=== PATIENT | female | born 1955 | race Caucasian/White ===

== ENCOUNTER 2016-06-25 09:17 | Inpatient (IN) | payer MEDICARE, MEDICAID ==
--- NOTE | 2016-06-18 13:53 | HP ---
PREOPERATIVE HISTORY AND PHYSICAL: DATE OF ADMISSION/SURGERY: 06/25/16 DATE OF OFFICE VISIT: 06/17/16 ATTENDING PHYSICIAN: Dr. Rand Begum. (DICTATED BY DHEERAJ MANUEL) PROCEDURE: Right shoulder arthroscopic excision, distal clavicle, versus open; arthroscopic decompression; debridement, rotator cuff repair, open. CHIEF COMPLAINT: Right shoulder pain. HISTORY OF PRESENT ILLNESS: Claudia is a 61-year-old female, who presents to the clinic for ongoing right shoulder pain due to biceps tendinitis, partial tear of rotator cuff and AC joint arthritis, the patient has failed conservative measures and has therefore agreed to undergo a right shoulder arthroscopic excision, distal clavicle, versus open; arthroscopic decompression; debridement , rotator cuff repair, open. PAST MEDICAL HISTORY: Sleep apnea and hyperlipidemia. PAST SURGICAL HISTORY: Appendectomy, tonsillectomy, carpal tunnel release, right shoulder surgery, right knee surgery x4, and x2. MEDICATIONS: 1. Humira 40 mg/0.8 mL inject 40 mg subcu once every other week. 2. Alprazolam 0.5 mg take 1 tab by mouth 30 minutes prior to MRI. 3. Hydrocodone/acetaminophen 7.5/325 take 1 to 2 every evening at bedtime. 4. Lortab 5/325 one to two tabs every 8 hours as needed for pain. 5. D3 Maximum Strength 5000 units take 1 capsule daily by mouth. 6. Cyanocobalamin 2500 mcg take 1 capsule daily by mouth sublingual. 7. Incentive spirometry daily to help improve atelectasis. 8. Seroquel 300 mg by mouth every day at bedtime. 9. Trazodone HCl 100 mg 2 by mouth every night at bedtime. 10. Symbicort 160/4.5 mcg per act 2 puffs twice a day. 11. Venlafaxine HCl 150 mg 1 tab by mouth every day. 12. Wellbutrin SR 150 mg 1 tab by mouth every day. ALLERGIES: SULFA ANTIBIOTICS, LATEX, and LEVAQUIN. FAMILY HISTORY: Diabetes and cancer. SOCIAL HISTORY: Lives with her and grandson. She smoked 1 pack per day. She denies alcohol use. REVIEW OF SYSTEMS: General: Negative for fever, chills, or night sweats. No known anesthesia problems. HEENT: Negative for headache, lightheadedness, or syncopal episodes. Integumentary: Negative for abrasions, lesions, or open wounds. Cardiothoracic: Negative for chest pain, palpitations, or edema. Negative for hypertension. Positive for hyperlipidemia. Pulmonary: Positive for shortness of breath with exertion, denies chronic cough, or COPD. GI: Negative for nausea, vomiting, diarrhea, or GERD. : Negative for nocturia, urinary frequency, urinary urgency, history of UTIs, or kidney problems. Musculoskeletal: Positive for current complaint. Neuro: Negative for paresthesias, numbness, history of stroke, seizure, or epilepsy. Endocrine: Negative for diabetes or thyroid issues. Heme: Negative for easy bruising, anemia, excessive bleeding, or history of DVT. Infectious Disease: Negative for history of MRSA, hepatitis C, or HIV. PHYSICAL EXAMINATION GENERAL: Overweight 61-year-old female, in no acute distress. Alert and oriented x3. Appropriate mood and affect. VITAL SIGNS: Height 65, weight 300 pounds, blood pressure 122/80, respiratory rate 18, BMI 49.9. HEENT: Normocephalic, atraumatic. PERRLA. Throat clear. NECK: Supple. PULMONARY: Lungs are clear to auscultation bilaterally. No wheezing, rhonchi, or rales. CARDIO: Regular rate and rhythm. S1, S2. No murmurs, rubs, or gallops. No edema. ABDOMEN: Positive bowel sounds, soft, and nontender. NEURO: Alert and oriented x3. Cranial nerves grossly intact. Sensation is intact to light touch. MUSCULOSKELETAL: Right upper extremity, skin is intact. No warmth or erythema. Tenderness to palpation over the anterior shoulder as well as the subacromial space. Forward flexion to 140, abduction to 140 limited by pain, external rotation to 50, and internal rotation to posterior iliac spine. Extreme pain with rotator cuff testing with 4/5 strength. Unable to perform subscapularis testing, tenderness to palpation over the AC joint, positive Neer' s, Ferrer, Cayey's. +2 radial pulse. Sensation intact to light touch distally. Left shoulder, skin is intact. Nontender to palpation. Full range of motion. +2 radial pulse. Sensation intact to light touch distally. DIAGNOSTIC STUDIES: MRI of the right shoulder revealed high-grade partial thickness tear of the supraspinatus tendon, biceps tendinitis, undersurface tear of the subscapularis tendon, and a SLAP lesion as well as AC joint arthritis. IMPRESSION: Right shoulder partial tear of the supraspinatus and subscapularis tendon, acromioclavicular joint arthritis, and biceps tendinitis. PLAN: The patient is scheduled to undergo a right shoulder arthroscopic excision, distal clavicle, versus open; arthroscopic decompression; debridement , rotator cuff repair, open with Dr. Begum on 06/25/16. The patient states that she has recently seen her primary care physician and has been cleared. She will return to the office 10 to 14 days postop for followup and suture removal. Percocet will be used for postoperative pain management. DHEERAJ MANUEL [id number]/[facility] #: [id number] MTDD
[~2016-06-25 09:17] MED LIST: Atracurium* 10 MG/ML 10 ML VIAL ONE; Buffered Lidocaine 1% SYR 3ML* 3 ML/SYR SYRINGE INTRADERM ONE; Bupivacaine 0.25% SDV* 30 ML ONE; Dexamethasone TAB* 4 MG ONE; Dexamethasone TAB* 4 MG PO ONE; Famotidine IV* 10 MG/ML 2 ML (20 mg) IV ONE; Famotidine IV* 10 MG/ML 2 ML (20 mg) ONE; KETAMINE HCL* 50 MG/ML 10 ML VIAL ONE; Midazolam* 1 MG/ML 5 ML VIAL (5 MG) ONE; Morphine INJ* 2 MG/ML 1 ML SYRINGE IV PRN; PROCHLORPERAZINE INJ 5 MG/ML 2 ML VIAL IV PRN; Scopolamine 1.5 mg* PATCH TRANSDERM PRN; fentaNYL* 50 MCG/ML 2 ML VIAL (100 MCG VIAL) IV PRN; fentaNYL* 50 MCG/ML 5 ML VIAL (250 MCG VIAL) ONE; oxyCODONE/Acetamin 5/325 MG* TAB PO PRN
[2016-06-25] MEDS ORDERED: ceFAZolin 1 GM in Dextrose (*) 1 GM/50 ML BAG IVPB ONE (09:18)
[2016-06-25] MEDS ORDERED: ceFAZolin 2 GM PREMIX(*) 2 GM/50 ML BAG IVPB ONE (09:18)
[2016-06-25] MEDS ORDERED: Bupivacaine 0.25% SDV* 30 ML ONE (10:42)
[2016-06-25] MEDS ORDERED: Propofol* 10 MG/ML 20 ML BTL IV PUSH ONE ×2 (11:48→13:11)
[2016-06-25] MEDS ORDERED: Ondansetron INJ* 2 MG/ML VIAL ONE (11:48)
[2016-06-25] MEDS ORDERED: PROCHLORPERAZINE INJ 5 MG/ML 2 ML VIAL ONE (11:48)
[2016-06-25] MEDS ORDERED: Lidocaine 2% PF * 5 ML VIAL ONE (11:48)
[2016-06-25] MEDS ORDERED: Phenylephrine INJ* 10 MG/ML 1 ML VIAL (10 MG) ONE (11:49)
[2016-06-25] MEDS ORDERED: EPHEDrine (Pressors)* 50 MG/ML VIAL ONE (11:49)
[2016-06-25] MEDS ORDERED: Morphine INJ* 10 MG/ML 1 ML SYRINGE ONE (12:35)
[2016-06-25] MEDS ORDERED: Neostigmine Methylsulfate* 2 MG/2 ML SYRINGE ONE (13:05)
[2016-06-25] MEDS ORDERED: Glycopyrrolate IV* 0.2 MG/ML 1 ML VIAL ONE (13:05)
[2016-06-25] MEDS ORDERED: Ketorolac INJ* 30 MG/ML 1 ML VIAL ONE (13:06)
[2016-06-25] MEDS ORDERED: Albuterol 2.5 MG/3 ML NEB.SOL* (0.083%) ONE (14:34)
[2016-06-25] MEDS ORDERED: Ondansetron TAB* 4 MG PO PRN (16:28)
[2016-06-25] MEDS ORDERED: diPHENhydraMINE PO* 25 MG PO PRN (16:28)
[2016-06-25] MEDS ORDERED: Magnesium Hydroxide LIQ* 30 ML UDC PO PRN (16:28)
[2016-06-25] MEDS ORDERED: Acetaminophen TAB* 325 MG PO PRN (16:28)
[2016-06-25] MEDS ORDERED: oxyCODONE/Acetamin 5/325 MG* TAB PO PRN (16:28)
[2016-06-25] MEDS ORDERED: traZODone TAB* 50 MG TAB PO PRN (16:40)
[2016-06-25] MEDS ORDERED: Phenazopyridine TAB* 100 MG PO PRN (16:40)
[2016-06-25] MEDS ORDERED: Bumetanide TAB* 1 MG PO PRN (16:40)
[2016-06-25] MEDS ORDERED: oxyCODONE/Acetamin 5/325 MG* TAB ONE (18:33)
--- NOTE | 2016-06-25 19:21 | RAD ---
INDICATION: Hypoxemia postop. COMPARISON: Comparison is made with a prior chest x-ray study from September 24, 2015. TECHNIQUE: A portable view of the chest was obtained. FINDINGS: The heart is enlarged and unchanged from the prior exam. The lungs are underinflated. There is mild prominence of the interstitial markings which are unchanged. There is a small infiltrate at the right lung base. No pleural effusion is seen. IMPRESSION: 1. EXPIRATORY EXAM, SMALL RIGHT BASILAR INFILTRATE. 2. CARDIOMEGALY, UNCHANGED.
--- NOTE | 2016-06-25 20:17 | CONS ---
CONSULTATION REPORT: DATE OF CONSULT: 06/25/16 REASON FOR CONSULT: Postoperative hypoxemia in a patient with obstructive sleep apnea. REQUESTING PHYSICIAN: Consultation was requested by Dr. Begum from Orthopedic Surgery. CHIEF COMPLAINT: Shortness of breath. HISTORY OF PRESENT ILLNESS: Claudia Sandoval is a 61-year-old obese female with a history of obstructive sleep apnea, who is seen in the PACU, status post general anesthesia and surgery of right rotator cuff. The patient had nerve block for her right arm for postoperative pain management. She also had general anesthesia for her procedure. Postoperatively, she was noted to have oxygen saturations in the 80s and she was placed right now on OxyMask on 30% oxygen with saturations at 94% right now. The patient at baseline uses CPAP at night and she does not use oxygen at home. She does not have history of oxygen dependence in the past either. The patient is being to the admitted to the orthopedic service for overnight observation with a diagnosis of postoperative hypoxemia. Medicine was consulted in regards to postoperative hypoxemia. PAST MEDICAL HISTORY: 1. The patient is a current smoker. 2. Obesity. 3. COPD, not oxygen dependent. 4. History of dysthymic disorder. 5. Generalized anxiety disorder. 6. Rheumatoid arthritis. 7. History of irritable bowel syndrome with predominant diarrhea. 8. Gastroesophageal reflux disease. PAST SURGICAL HISTORY: Includes: 1. Appendectomy. 2. Cholecystectomy. 3. Tubal ligation. 4. Knee arthroscopies. 5. Carpal tunnel release. 6. . 7. Tonsillectomy. CURRENT MEDICATIONS: Include: 1. Trazodone 150 mg at bedtime p.r.n. 2. Seroquel XR 300 mg at bedtime. 3. Pyridium 200 mg t.i.d. p.r.n. 4. Enbrel 60 mg subcutaneously every 7 days. 5. Bumex 1 mg daily for leg swelling. 6. Symbicort 160/4.5 two puffs b.i.d. The patient also uses CPAP at night. FAMILY HISTORY: Positive for father who of bone cancer. SOCIAL HISTORY: The patient currently smokes up to 10 cigarettes a day. She denies any drug use. She drinks alcohol rarely. Her surrogate is her , Brandon Kerr. REVIEW OF SYSTEMS: Please see history of present illness. The patient stated that she occasionally has leg edema and appears to be more due to venous stasis ; it gets better when she has her feet elevated. She stated that her exercise tolerance is pretty poor. She is unable to walk a flight of stairs without significant dyspnea. She has not had any chest pain. Rheumatoid arthritis mostly affects the large joints in the bilateral shoulders , bilateral knees as well as neck. Currently, she denies any recent fevers. No recent cough or upper respiratory infection symptoms. All the remaining 14 systems were reviewed with the patient and were otherwise negative. PHYSICAL EXAM: Blood pressure of 151/82, heart rate of 77 and regular, respiratory rate 20, oxygen saturation 92% on 30% of oxygen via OxyMask, temperature 98.1. General: The patient is a very pleasant 61-year-old female whose BMI is 49. The patient is in no acute distress. Alert, awake, and oriented x3. HEENT: Head: Atraumatic, normocephalic. Eyes: Pupils equal, reactive to light and accommodation. Oropharynx clear. Mucosa moist. Neck: Supple. No JVD. No bruit bilaterally. Cardiovascular: Regular rate and rhythm. No murmur. Respiratory: Clear to auscultation bilaterally. Abdomen: Soft, nontender. Bowel sounds present in all 4 quadrants. Lower Extremities: There is no pedal edema. Pulses are +2 bilaterally. No clubbing or cyanosis. The right upper extremity is in postoperative sling. On evaluation of the skin , grossly no ecchymotic areas or rashes noted. The postoperative dressings on the right shoulder were not removed. DIAGNOSTIC STUDIES/LAB DATA: Currently, there are no available laboratory data and studies. Portable chest x-ray is ordered during this consultation. ASSESSMENT AND PLAN: A 61-year-old morbidly obese female with a history of obstructive sleep apnea, she was postoperative after a right rotator cuff repair and after general anesthesia. In regards to the patient's hypoxemia, it is most likely multifactorial and related to her intubation atelectasis post intubation as well as obstructive sleep apnea. The patient also has underlying chronic obstructive pulmonary disease and has no respiratory reserve. At this point, it does not appear to be chronic obstructive pulmonary disease exacerbation. At this point, I hold her postoperative intravenous fluids as were ordered by her primary service. The patient appears euvolemic. I do not think she needs anymore fluids. The patient is going to be placed on oxygen supplementation and CPAP at night. Incentive spirometry was also ordered. In regards to the patient's chronic obstructive pulmonary disease, the patient is going to be continued on Symbicort as previously taken. In regards to the patient's rheumatoid arthritis, that is being treated as an outpatient by Dr. Christy. For DVT prophylaxis, the patient was placed on Lovenox per primary service. Code status: The patient's code status is full. At this point, I believe the overnight observation, incentive spirometry, and CPAP are fully going to resolve and the patient being able to be on room air by tomorrow morning. She may nevertheless require oxygen at discharge and that can be arranged by porter sample case. Thank you very much for allowing me to see your patient in consultation. At this point, our service will sign off. Please let us know if any further needs or services are needed. I will be happy to assist you with them. TIME SPENT: Approximately 60 minutes was spent on the patient's consultation. CC: Dr. Christy; Dr. Moreno; Dr. Begum* [id number]/[facility] #: [id number] [facility]
[2016-06-25] MEDS ORDERED: QUEtiapine XR TAB* 300 MG PO SCH (21:00)
[2016-06-25] MEDS: Mometasone/Formoter 200/5 MDI INH SCH (21:04)
[2016-06-25] MEDS: ceFAZolin 1 GM in Dextrose (*) 1 GM/50 ML BAG IVPB SCH (21:09)
[2016-06-25] MEDS: oxyCODONE/Acetamin 5/325 MG* TAB PO PRN (22:35)
[2016-06-26] MEDS: ceFAZolin 1 GM in Dextrose (*) 1 GM/50 ML BAG IVPB SCH ×2 (01:32→07:15)
[2016-06-26] MEDS: oxyCODONE/Acetamin 5/325 MG* TAB PO PRN ×3 (02:34→12:58)
[2016-06-26] MEDS: Mometasone/Formoter 200/5 MDI INH SCH (07:15)
--- NOTE | 2016-06-26 08:23 | PN ---
Progress Note - Progress Note SOAP: Subjective: [61 y/o female POD 1 s/p shoulder arthroscopy complicated post-op by hypoxemia. Patient feeling well, eager for DC. No SOB, chest pain overnight. ] Objective: [General- well appearing, NAD MSK- dressing intact, able to move fingers well. ] Vital Signs Temp 97.4 F 06/26/16 07:25 Pulse 58 06/26/16 07:25 Resp 16 06/26/16 08:00 BP 143/54 06/26/16 07:25 Pulse Ox 95 06/26/16 07:25 Intake & Output 06/25/16 06/26/16 06/26/16 18:59 06:59 18:59 Intake Total 1420 485 164 Output Total 400 Balance 1420 85 164 Weight 299 lb 12.8 oz Intake: IV Fluids 1300 35 106 ABX - CEFAZOLIN 35 LR 1300 106 IVPB 50 58 ABX - CEFAZOLIN 50 58 Oral 120 400 Output: Urine 400 Other: Estimated Blood Loss <100 Comment Assessment: [61 y/o female POD 1 s/p shoulder arthroscopy complicated post-op by hypoxemia] Plan: [- Await hospitalist recommendations - Follow up with Dr Begum within 10 days ] Active Medications Generic Name Dose Route Start Last Admin Trade Name Freq PRN Reason Stop Dose Admin Acetaminophen 650 mg 06/25/16 16:28 Tylenol Tab* PO Q4H PRN PAIN OR TEMPERATURE Bumetanide 1 mg 06/25/16 16:40 Bumex Tab* PO DAILY PRN fluid retention Diphenhydramine HCl 25 mg 06/25/16 16:28 Benadryl Po* PO Q6H PRN itching or sleep Enoxaparin Sodium 30 mg 06/26/16 09:00 06/26/16 07:18 Lovenox(*) SUBCUT 30 mg Q24H JUAN Administration Etanercept 60 mg 06/29/16 17:00 Enbrel (Nf) SUBCUT Q7D JUAN Lactated Ringer's 1,000 mls @ 125 mls/hr 06/25/16 06:00 Lactated Ringers 1000 Ml Bag* IV PER RATE JUAN Lactulose 30 ml 06/25/16 16:28 Lactulose* PO Q6H PRN constipation Magnesium Hydroxide 30 ml 06/25/16 16:28 Milk Of Magnesia Liq* PO Q6H PRN constipation Mometasone Furoate/Formoterol Fumar 2 puff 06/25/16 21:00 06/26/16 07:15 Dulera 200/5 Mdi* INH 2 puff BID JUAN Administration Protocol Ondansetron HCl 4 mg 06/25/16 16:28 Zofran Tab* PO Q6H PRN NAUSEA Oxycodone/Acetaminophen 1 tab 06/25/16 16:28 Percocet 5/325 Tab* PO Q4H PRN PAIN Oxycodone/Acetaminophen 2 tab 06/25/16 16:28 06/26/16 07:24 Percocet 5/325 Tab* PO 2 tab Q4H PRN Administration PAIN Pharmacy Profile Note 1 note 06/28/16 05:43 Scopolomine Patch Remove* PATCH OFF 06/28/16 05:44 Q72H ONE Phenazopyridine HCl 200 mg 06/25/16 16:40 Pyridium Tab* PO TID PRN bladder Quetiapine Fumarate 300 mg 06/25/16 21:00 06/25/16 22:35 Seroquel Xr Tab* PO 300 mg BEDTIME JUAN Administration Trazodone HCl 150 mg 06/25/16 16:40 Desyrel Tab* PO BEDTIME PRN INSOMNIA
[2016-06-26] MEDS ORDERED: Enoxaparin(*) 30 MG/0.3 ML SYR SUBCUT SCH (09:00)
--- NOTE | 2016-06-26 12:23 | PN ---
Progress Note - Progress Note Note: POD#1 from [facility]. Admitted for hypoxia. Doing well. Pain controlled. eager to go home. 1 sat below 90 yesterday evening on CPAP at home. Temp Pulse Resp BP Pulse Ox 97.4 F 60 15 116/52 91 06/26/16 07:25 06/26/16 11:48 06/26/16 11:48 06/26/16 11:48 06/26/16 11:48 NAD. Dressing and icepack in place. SILT grossly distally. brisk cap refill/ A/P POD#1 doing well. sats doing well. will monitor for next few hours and d/c on RA as long as no sats below 88. else she will need O2. appreciate medicine consult. f/u 10-14 days. dispo today
[2016-06-26 15:59] VITALS: BP 145/60
--- NOTE | 2016-06-26 22:49 | DS ---
DISCHARGE SUMMARY: DATE OF ADMISSION: 06/25/16 DATE OF DISCHARGE: 06/26/16 ATTENDING SURGEON: Dr. Rand Begum (DICTATED BY DHEERAJ WHITE) CHIEF COMPLAINT: 1. Right shoulder pain. 2. Sleep apnea. 3. Hyperlipidemia. DISCHARGE DIAGNOSES: 1. Status post right arthroscopic incision, rotator cuff repair. 2. Sleep apnea. 3. Hyperlipidemia. 4. Postoperative hypoxemia. CONSULTATIONS: 1. Physical Therapy. 2. Hospitalist. BRIEF HISTORY: Mrs. Sandoval is a very pleasant 61-year-old female with a longstanding history of right shoulder pain, who elected to undergo a right shoulder rotator cuff repair by Dr. Begum on 06/25/16. HOSPITAL COURSE: Mrs. Sandoval was admitted to [facility] on 06/25/16 after undergoing an uncomplicated right rotator cuff repair surgery. Postoperatively, the patient was noted to have oxygen saturations in the 80s and was admitted for overnight observations with the diagnosis of postoperative hypoxemia. She was monitored with incentive spirometry and her CPAP overnight and was noted to have oxygen saturations in the upper 80s without room air and in the low to mid 90s with 2 to 4 L of nasal cannula overnight. The patient continued to improve and by midday on 06/26/16 was remaining above 90 on room air. She was deemed orthopedically and medically stable for discharge to go home. PHYSICAL EXAMINATION: General: Well appearing, in no acute distress. Alert and oriented x3. Vital Signs: Temperature of 97.4, pulse of 58, respirations 17, oxygen saturation 95% on room air, and blood pressure 143/54. Surgical dressing intact with no signs of drainage or erythema. The patient is able to move all digits without difficulty. Brisk cap refill. DISCHARGE MEDICATIONS: 1. Tylenol 650 mg p.o. q.4 hours p.r.n. 2. Bumex 1 mg p.o. daily. 3. Enbrel 60 mg subcutaneously every 7 days. 4. Symbicort 2 puffs inhaled b.i.d. 5. Pyridium 200 mg p.o. t.i.d. 6. Seroquel 300 mg p.o. at bedtime. 7. Benadryl 25 mg p.o. q.6 hours p.r.n. 8. Percocet 1 to 2 tablets q.4 hours p.o. p.r.n. 9. Trazodone 150 mg p.o. at bedtime. CONDITION ON DISCHARGE: Stable. DISCHARGE INSTRUCTIONS: Mrs. Sandoval is a very pleasant 61-year-old female postoperative day 1 status post right rotator cuff repair, which was complicated by postoperative hypoxemia. This appeared to have resolved and the patient was orthopedically and medically stable for discharge to go home. She will continue her exercises as shown by Dr. Begum and will be able to remove her surgical dressing on postoperative day 3. She had no further questions or concerns. She will follow up with Dr. Begum in approximately 10 to 14 days for incision check. She was instructed to go to the ER should she develop shortness of breath or chest pain and should call the office should she develop fever, increasing redness, or drainage around the incision site. DHEERAJ WHITE [id number]/[facility] #: [id number] [facility] MANUEL
--- NOTE | 2016-06-27 05:05 | OP ---
DATE OF OPERATION: 06/25/16 - ROOM #347 DATE OF : 59 SURGEON: Rand Begum MD PCA ASSISTED LIVING: DHEERAJ Zimmerman. An web production assistant was needed for the entirety of the case to help with positioning, retraction, and was utilized throughout all portions of the case. ANESTHESIOLOGIST: Dr. Campbell. ANESTHESIA: General with interscalene block. PRE-OP DIAGNOSES: Right shoulder rotator cuff tear, bicipital tendonitis, impingement, AC joint arthritis. POST-OP DIAGNOSES: Right shoulder rotator cuff tear, bicipital tendonitis impingement. OPERATIVE PROCEDURE: Right shoulder arthroscopy with: 1. Extensive glenohumeral debridement including chondroplasty and biceps tenotomy. 2. Rotator cuff repair. 3. Subacromial decompression with acromioplasty. 4. Distal clavicle excision. IMPLANTS: One 4.75 HEALICOIL. COMPLICATIONS: The patient had mild hypoxia due to her body habitus as well as NISSA, which required admission postoperatively overnight, but no surgical complications. ESTIMATED BLOOD LOSS: Minimal. INDICATIONS: Claudia Sandoval is a 61-year-old female, who has had persistent shoulder pain for several years. She had an MRI that demonstrates the partial thickness tear anteriorly of her rotator cuff. She has failed conservative management including injections as well as anti-inflammatories and physical therapy. After an extensive discussion of the risks and benefits of surgical versus nonoperative treatment, she has elected to proceed with surgery. The patient is morbidly obese and has multiple medical problems and underwent preoperative medical risk assessment and optimization prior to surgery. Risks included, but are not limited to, bleeding, infection, damage to nerves, vessels , surrounding structures, the wound not healing, persistent pain, need for further surgery, risk of anesthesia and risk of DVT. She was at a moderate risk due to her morbid obesity and sleep apnea. DESCRIPTION OF PROCEDURE: The patient was greeted in the preoperative area by the attending surgeon. The correct extremity was marked and consent was confirmed. The patient was then underwent interscalene block in the preanesthesia area, which she tolerated without difficulty after which, the patient was brought back to the operating suite where she was placed in the supine position on the operating room table. She then underwent general anesthesia and endotracheal intubation after which the patient was carefully placed in the left lateral decubitus position with an axillary roll. All bony prominences were padded. She was supported with a peg board. The right arm was suspended from the traction frame with 15 pounds of traction. The right shoulder was prepped and draped in the usual sterile fashion beginning with chlorhexidine soap, scrub and alcohol wipe and a final prep with ChloraPrep. After appropriate surgical pause indicating side, site, and procedure, administration of antibiotics, a standard posterior portal was made sharply with a #11 blade. The scope was introduced to the joint. The joint was examined. There was evidence of full-thickness tear anteriorly. The humerus had grade 0 to 1 changes. Glenoid had a small area of grade 2 changes, otherwise grade 1 changes. Anterior portal was made in an outside-in fashion. Shaver was used to debride the anterior posterior labrum. The biceps was taken through range of motion and was also found to be torn. This was then tenotomized and the stump was debrided back. The undersurface of the subscapularis was found to be intact with mild fraying, which was debrided back. The anterior posterior superior labrum, as well as the small chondroplasty was done in the glenoid. The inferior recess was intact. There was abundant synovitis apparent and a small amount of lysis of adhesions was done anteriorly. After this was complete, the scope was then repositioned in the subacromial space. The scope was repositioned in the subacromial space and lateral portal was made in an outside-in fashion. Shaver was used to remove the abundant bursa that was present. Electrocautery device was used to maintain hemostasis at all time. The undersurface of the acromion was identified and the acromion was skeletonized and found a moderate anterior spur. There was also calcification evident of the CA ligament. This removal of soft tissue was carried all the way to the AC joint. At this point, a 4.0 oval haile was brought in to do an acromioplasty and remove the excess bone of the CA ligament. Once this was completed, all debris was removed from the shoulder and the attention was directed to the distal clavicle. The haile was brought into the anterior portal and a distal clavicle excision was done. This was somewhat difficult to visualize due to her body habitus. After resection was done as best as possible, all loose debris was removed. The clavicle was manipulated and found to have no areas of impingement. At this point, the rotator cuff was examined again. Through the lateral portal, the blunt probe was then used to try to determine any areas of weakness. The soft tissue quality was not very good and there was a full thickness deep anteriorly based, a small portion of the anterior rotator cuff was then completed. She may have had partial thickness tear posterior to that due to the fact that I was concerned about her healing and limited how much of the rotator cuff was taken down and therefore a small portion of the anterior rotator cuff was prepared with the shaver and the electrocautery device. The rasp was used to prepare the greater tuberosity as well as electrocautery device. Once this was done, a 4.75 HEALICOIL anchor was placed through a separate stab incision. The sutures were passed through the tendon full-thickness bites and these were tied down in a horizontal mattress configuration. All loose fiber and debris were removed. The shoulder was taken through range of motion and was found to be intact. The remainder of the cuff was found to be not of great quality, but was still intact. Therefore, it remained. The wound was copiously irrigated after the final images were obtained and the portals were closed with 3-0 nylon. Sterile dressings were applied as well as a cryo/Cuff and an UltraSling. The patient was then awoken from anesthesia and transferred to the PACU in stable condition. POSTOPERATIVE PLAN: She will be in the sling for 6 weeks. She will be discharged on pain medication. She will be allowed to work on elbow, wrist, and hand range of motion. DVT prophylaxis was considered but deferred due to no previous or personal family history. Postoperatively, the patient did have some issues with hypoxia and was monitored for sometime, but was felt unsafe to go home. At this point, the patient was admitted overnight to my service and the Hospitalist was consulted for any recommendations. She was monitored and we will potentially discharge her on postop day 1. We will have her follow up with her primary care within 1 week. DVT prophylaxis will be heparin while she is in-house and I will see her in 10 to 14 days postoperatively. [id number]/CPS #: [id number] MTDD
[2016-06-28] MEDS ORDERED: Scopolomine PATCH Remove* 1 NOTE MISC PATCH OFF ONE (05:43)
[2016-06-29] MEDS ORDERED: Etanercept SYR (NF) 50 MG/ML 0.98 ML SUBCUT SCH (17:00)
== END 2016-06-26 17:10 | disposition home or self-care (01) | DRG 501 ==
LOC: OR 09:17 → SSU 16:28
PROVIDERS: ADMIT Orthopaedic Surgery; ATTEND Orthopaedic Surgery
PROC: 0LQ14ZZ Repair Right Shoulder Tendon, Percutaneous Endoscopic Approach (ICD-10-PCS; 2016-06-25)
PROC: 0RBJ4ZZ Excision of Right Shoulder Joint, Percutaneous Endoscopic Approach (ICD-10-PCS; 2016-06-25)
PROC: 0RNJ4ZZ Release Right Shoulder Joint, Percutaneous Endoscopic Approach (ICD-10-PCS; 2016-06-25)
PROC: 0PB94ZZ Excision of Right Clavicle, Percutaneous Endoscopic Approach (ICD-10-PCS; 2016-06-25)
PROC: 5A09357 Assistance with Respiratory Ventilation, Less than 24 Consecutive Hours, Continuous Positive Airway Pressure (ICD-10-PCS; 2016-06-25)
PROC: 0KN Muscles, Release (ICD-10-PCS; principal; 2016-06-25 10:45)
DX: M75.111 Incomplete rotator cuff tear or rupture of right shoulder, not specified as traumatic (principal); Z68.42 Body mass index [BMI] 45.0-49.9, adult; M75.21 Bicipital tendinitis, right shoulder; M25.811 Other specified joint disorders, right shoulder; M65.811 Other synovitis and tenosynovitis, right shoulder; E78.5 Hyperlipidemia, unspecified; R09.02 Hypoxemia; F17.210 Nicotine dependence, cigarettes, uncomplicated; M19.011 Primary osteoarthritis, right shoulder; G47.33 Obstructive sleep apnea (adult) (pediatric); J44.9 Chronic obstructive pulmonary disease, unspecified; F34.1 Dysthymic disorder; F41.1 Generalized anxiety disorder; M06.9 Rheumatoid arthritis, unspecified; K58.9 Irritable bowel syndrome, unspecified; K21.9 Gastro-esophageal reflux disease without esophagitis; E66.01 Morbid (severe) obesity due to excess calories; Z88.1 Allergy status to other antibiotic agents; Z88.2 Allergy status to sulfonamides; Z91.040 Latex allergy status; Z83.3 Family history of diabetes mellitus; Z98.51 Tubal ligation status; Z80.8 Family history of malignant neoplasm of other organs or systems
CPT/HCPCS: 71010; 94640; 94760; 99406; A9270-GY; C1713; J0690; J0780; J1650; J1885; J2250; J2270; J2405; J2704; J3010

== ENCOUNTER 2017-12-28 15:50 | Emergency (ER) | payer OTHER, MEDICAID ==
--- OUTSIDE RECORDS SUMMARY | 2017-12-28 15:55 | XMS REPORT ---
:1955 External Reference #:[id number] Author Organization [facility] Address [address] [place] [address] Phone [phone] Care Team Providers Name Role Phone Isaiah Moreno MD Primary Care Physician Unavailable Payers Type Date Identification Numbers Payment Provider Subscriber Medicare Primary Policy Number: [id number] Medicare Claudia Sandoval PayID: [id number] [address] [place] [address] [facility] Part B Effective: 2016 Policy Number: [id number] Medicaid Claudia Sandoval Group Name: 1 1 [address] PayID: [id number] [place] [address] Problems Date Description Provider Status Onset: 10/24/2015 Sleep apnea Ana Paula Forrest DNP, RN, Active [employer] Onset: 10/24/2015 Dyssomnia Ana Paula Forrest DNP RN, Active [employer] Onset: 10/24/2015 Periodic leg movements of sleep Ana Paula Forrest DNP, RN, Active [employer] Onset: 10/24/2015 Tobacco user Ana Paula Forrest DNP, RN, Active [employer] Onset: 01/30/2016 Localized, primary osteoarthritis Didi Chao M.D. Active of the shoulder region Onset: 01/30/2016 Sprain of shoulder rotator cuff Didi Chao M.D. Active Onset: 08/07/2016 Bicipital tenosynovitis Rand Begum MD Active Onset: 12/11/2016 Full thickness rotator cuff tear Rand Begum MD Active Onset: 09/30/2016 Incomplete rotatr-cuff tear/ruptr Rand Begum MD Active of r shoulder, not trauma Family History Date Family Member(s) Problem(s) Comments General Diabetes General Cancer General Arthritis General Paternal side Father due to Renal Failure () Father due to Cancer () Mother Mother left when pt was young child ; no family hx Siblings 4 2 full sister, never sees 2 1/2 brothers Social History Type Date Description Comments Marital Status Lives With 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 ETOH Use Denies alcohol use Smoking quit as of 06/25/16 Recreational Drug Use Marijuana - helps pt sleep Smoking Patient is a former smoker Daily Caffeine Consumes on average 1 cup of regular coffee per day Exercise Type/Frequency Does not exercise Allergies, Adverse Reactions, Alerts Date Description Reaction Status Severity Comments 06/30/2013 Sulfa Antibiotics active 09/18/2015 Latex active 10/24/2015 Levaquin active 12/03/2017 Percocet active 12/03/2017 Neosporin active Medications Medication Date Status Form Strength Qnty SIG Indications Ordering Provider Hydrocodone-Acetam 10/01 Active Tablets 10-325mg 30tab take 1-2 at art s night as Shy, needed for pain Humira Pen 06/24 Active PNKT 40mg/0.8M 6unit Inject 1 M05.79 L chapo Pen Aung Christy M.D. Every Other Week Melber PD 10/01 Active Device 1unit Use s spirometer Jaelyn daily to Jessica help improve atelectasis Seroquel Active Tablets 300mg 30tab by mouth Unknown /0000 s every night at bedtime Symbicort Active Aerosol 160-4.5mc 2 puff Unknown /0000 g/Act twice a day Ventolin HFA Active Aerosol 108(90Bas 2 puffs by Unknown /0000 e) mouth four mcg/Act times a day as needed Spironolactone/Hyd Active Tablets 25-25mg 1 tab by Unknown rochlorothiazide /0000 mouth daily Atorvastatin Active Tablets 20mg take 1 Unknown Calcium /0000 tablet at bedtime Incruse Ellipta Active Aerosol 62.5mcg/I inhale one nh puff by mouth every day Metformin HCL Active Tablets 500mg 1 tab by mouth daily Synthroid Active Tablets 25mcg 1 by mouth every day Vitamin B 12 Active Lozenges 5000mcg by mouth every day Methocarbamol Active Tablets 750mg 1 po qd Gabapentin Active Capsules 300mg 1 by mouth tid Vitamin D Active Tablets 5000Iu 1 po qd Gabapentin 01/09 Hx Capsules 100mg 60cap 1 tablet s daily, june Jaelyn, - take up to M.D. 12/03 three daily Hydrocodone 09/30 Hx Tablets 10-300mg 60tab take 1-2 M75.21 Zaneb Bitartrate/Acetami s tabs as pepe Begum - needed 01/09 every night Home Oxygen 07/16 Hx Discontinue R09.02 home oxygen Shy, - 08/25 Hydrocodone-Acetam 07/09 Hx Tablets 5-325mg 60tab take 1 b s tablet by Shy, - mouth every 10/01 6 hours needed. Percocet 06/25 Hx Tablets 5-325mg 40tab take 1-2 s tabs by Sean, - mouth q4-6 M.D. 12/08 hours needed pain Humira 05/30 Hx PSKT 40mg/0.8M 6unit inject 40 M05.79 L s mg Jaelyn, - subcutaneou M.D. 06/24 s once every other week prefilled syringe, do not start until 4 weeks after your surgery Alprazolam 03/26 Hx Tablets 0.5mg 1tabs Take tablet by mouth 30 Yalazaro, - mins prior 01/09 to Hydrocodone-Acetam 03/07 Hx Tablets 7.5-325mg 14tab take 1-2 M19.011 neb ino s tabs every Shy, - evening at 07/09 bed time Lortab 01/29 Hx Tablets 5-325mg 60tab 1 or 2 M25.511 s tablets q8 Apurvapepper, - hours as 11/25 needed pain /2017 D3 Maximum 11/12 Hx Capsules 5000Unit 90cap take one s capsule/tab Jaelyn, - let daily M.D. 12/02 by mouth Enbrel Sureclick 10/04 Hx Solution 50mg/ml 11.76 inject 50 M05.79 Auto-Inje ml mg under Jaelyn, - ct the skin M.D. 05/30 every approved through 12/23/18 # [id number] Ergocalciferol 10/01 Hx Capsules [id number] 14cap take 1 s capsule by Jaelyn, - mouth once M.D. 11/12 Cyanocobalamin 10/01 Hx Tablets 2500mcg 90tab take one Sub s capsule/tab Jaelyn, - let daily M.D. 11/25 by mouth sublingual (not taking) Prednisone 10/01 Hx Tablets 5mg 60tab Take 3 tabs s daily for 1 Jaelyn, - week then 2 M.D. 11/12 tabs for week then 1 tab daily for 1 week then discontinue Enbrel 09/17 Hx Soln 50mg/ml 4unit 50mg sq M05.79 Prefill s every week Jaelyn, - Syringe M.D. 10/04 Percocet 09/14 Hx Tablets 5-325mg 40tab take 1-2 s tabs by Ruben, - mouth q4-6 M.D. 10/24 hours as needed pain Naproxen 09/14 Hx Tablets 500mg 30tab 1 by mouth s twice a day Ruben, - as needed M.D. 09/17 pain Medrol (Jorge) 08/13 Hx Tablets 4mg 1tabs per Kip M. lisa Pate, - directions M.D. 06/30 Hydrocodone/Acetam Hx Unknown inophen 500-300 MG /0000 - 09/13 Diclofenac Sodium Hx Tablets 75mg 60tab take 1 Unknown /0000 DR s tablet by - mouth twice 09/17 a /2015 Citalopram Hx Tablets 40mg 90tab 1 by mouth Unknown Hydrobromide /0000 s every day - 09/17 Triamterene/Hydroc Hx Tablets 37.5-25mg 90tab 1 by mouth Unknown hlorothiazide /0000 s every day - 09/17 Trazodone HCL Hx Tablets 100mg 2 by mouth Unknown /0000 every night - at bedtime 11/25 Prednisone Hx Tablets 20mg 1-2 daily Unknown /0000 - 10/01 Symbicort 00 Hx Aerosol 160-4.5mc 2 puff Unknown /0000 g/Act twice a day - 01/28 Tudorza Pressair Hx Aerosol 400mcg/Ac 1 puff Unknown /0000 t twice a day - 10/22 Bumetanide Hx Tablets 1mg take one Unknown /0000 tablet by - mouth every 01/28 day needed for edema Hydroxychloroquine Hx Tablets 200mg 1 by mouth Unknown Sulfate /0000 twice a day - 01/28 Symbicort 00 Hx Aerosol 160-4.5mc 2 puff Unknown /0000 g/Act twice a day - 11/12 Venlafaxine HCL ER 00/ Hx Caps ER 150mg 1 by mouth Unknown /0000 24HR every day - 08/25 Wellbutrin SR Hx Tablets 150mg 1 by mouth Unknown /0000 ER 12HR every day - 08/25 Vitamin D3 Ultra Hx Capsules 5000Unit 1 by mouth Unknown Strength /0000 every day - 11/25 Medications Administered in Office Medication Date Status Form Strength Qnty SIG Indications Ordering Provider Triamcinolone 12/11/ Administered Injection Zaneb (Kenalog) 2016 MD Shy Depomedrol 80MG 10/25/ Administered Injection Rangel Miranda M.D. Depomedrol 80MG 06/30/ Administered Injection Rangel Miranda M.D. Immunizations CPT Code Status Date Vaccine Reaction Lot # [id number] Given 05/30/2016 Pneumococcal Conjugate Vaccine 13 no reaction noted [id number] Valent For Intramuscular Use [id number] Given 11/13/2015 Influenza Virus Vaccine, No reaction noted [id number] Quadrivalent, Split, Preservative Free Vital Signs Date Vital Result Comment 12/03/2017 Height 65 inches 5'5" Weight 306.00 lb Heart Rate 84 /min BP Systolic 110 mmHg left arm lg cuff BP Diastolic 62 mmHg left arm lg cuff BMI (Body Mass Index) 50.9 kg/m2 01/09/2017 Height 65 inches 5'5" Weight 302.25 lb Heart Rate 80 /min BP Systolic Sitting 138 mmHg BP Diastolic Sitting 80 mmHg Respiratory Rate 16 /min Pain Level 4 BMI (Body Mass Index) 50.3 kg/m2 12/11/2016 Height 65 inches 5'5" Weight 305.00 lb Heart Rate 79 /min BP Systolic 152 mmHg BP Diastolic 82 mmHg Body Temperature 97.8 F BMI (Body Mass Index) 50.7 kg/m2 11/18/2016 Height 65 inches 5'5" Weight 302.00 lb BP Systolic 144 mmHg BP Diastolic 70 mmHg Respiratory Rate 20 /min Body Temperature 97.9 F Pain Level 5 BMI (Body Mass Index) 50.2 kg/m2 09/30/2016 Height 65 inches 5'5" Weight 302.00 lb Heart Rate 87 /min Respiratory Rate 17 /min Pain Level 5 BMI (Body Mass Index) 50.2 kg/m2 08/25/2016 Height 65 inches 5'5" Weight 302.00 lb Heart Rate 72 /min BP Systolic Sitting 131 mmHg BP Diastolic Sitting 71 mmHg Respiratory Rate 16 /min Pain Level 6 BMI (Body Mass Index) 50.2 kg/m2 08/07/2016 Height 65 inches 5'5" Weight 300.00 lb Heart Rate 69 /min BP Systolic 150 mmHg BP Diastolic 80 mmHg Pain Level 8 BMI (Body Mass Index) 49.9 kg/m2 07/08/2016 Height 65 inches 5'5" Weight 299.00 lb Heart Rate 93 /min BP Systolic 125 mmHg BP Diastolic 71 mmHg Body Temperature 97.0 F Pain Level 7 BMI (Body Mass Index) 49.8 kg/m2 06/17/2016 Height 65 inches 5'5" Weight 300.00 lb BP Systolic 122 mmHg BP Diastolic 80 mmHg Respiratory Rate 18 /min Pain Level 8 BMI (Body Mass Index) 49.9 kg/m2 05/30/2016 Height 65 inches 5'5" Weight 300.12 lb Heart Rate 68 /min BP Systolic Sitting 141 mmHg BP Diastolic Sitting 80 mmHg Respiratory Rate 16 /min Body Temperature 97.4 F BMI (Body Mass Index) 49.9 kg/m2 05/14/2016 Height 65 inches 5'5" Weight 300.00 lb Heart Rate 78 /min BP Systolic Sitting 150 mmHg BP Diastolic Sitting 84 mmHg Respiratory Rate 18 /min O2 % BldC Oximetry 96 % BMI (Body Mass Index) 49.9 kg/m2 04/08/2016 Height 65 inches 5'5" Weight 300.00 lb Heart Rate 79 /min BP Systolic 163 mmHg BP Diastolic 86 mmHg Pain Level 7 BMI (Body Mass Index) 49.9 kg/m2 03/07/2016 Height 65 inches 5'5" Weight 300.00 lb Heart Rate 60 /min Respiratory Rate 16 /min Pain Level 8 BMI (Body Mass Index) 49.9 kg/m2 02/26/2016 Height 65 inches 5'5" Weight 300.00 lb Heart Rate 75 /min BP Systolic 132 mmHg BP Diastolic 14 mmHg Respiratory Rate 14 /min O2 % BldC Oximetry 93 % BMI (Body Mass Index) 49.9 kg/m2 01/30/2016 Height 65 inches 5'5" Weight 300.00 lb per pt Respiratory Rate 18 /min Pain Level 9 BMI (Body Mass Index) 49.9 kg/m2 11/13/2015 Height 65 inches 5'5" Weight 302.50 lb Heart Rate 84 /min BP Systolic Sitting 120 mmHg BP Diastolic Sitting 80 mmHg Body Temperature 97.9 F Pain Level 7 BMI (Body Mass Index) 50.3 kg/m2 10/24/2015 Height 65 inches 5'5" Weight 304.25 lb Heart Rate 107 /min BP Systolic Sitting 155 mmHg BP Diastolic Sitting 89 mmHg Respiratory Rate 20 /min O2 % BldC Oximetry 98 % BMI (Body Mass Index) 50.6 kg/m2 Neck Circumference in inches 21.25 10/02/2015 Height 64.5 inches 5'4.50" Weight 304.00 lb Heart Rate 92 /min BP Systolic Sitting 160 mmHg BP Diastolic Sitting 88 mmHg Body Temperature 98.2 F Pain Level 8 BMI (Body Mass Index) 51.4 kg/m2 09/18/2015 Weight 303.00 lb Heart Rate 82 /min BP Systolic Sitting 142 mmHg BP Diastolic Sitting 74 mmHg O2 % BldC Oximetry 95 % 01/10/2014 Height 64.5 inches 5'4.50" Weight 283.00 lb Pain Level 7 BMI (Body Mass Index) 47.8 kg/m2 10/25/2013 Height 65 inches 5'5" Heart Rate 80 /min BP Systolic 130 mmHg BP Diastolic 81 mmHg 09/14/2013 Height 65 inches 5'5" Weight 300.00 lb Pain Level 10 BMI (Body Mass Index) 49.9 kg/m2 06/30/2013 Height 65 inches 5'5" Weight 300.00 lb Heart Rate 70 /min BP Systolic 170 mmHg BP Diastolic 90 mmHg BMI (Body Mass Index) 49.9 kg/m2 Results Test Date Test Result H/L Range Note Laboratory test finding 01/09/2017 C Reactive Protein 6.68 mg/L High < 5.00 1 Erythrocyte Sed Rate 19 mm/Hr 0-30 Creatine Kinase(CK) 65 U/L 10-223 CBC Auto Diff 01/09/2017 White Blood Count 9.5 10^3/uL 3.5-10.8 Red Blood Count 4.94 10^6/uL 4.0-5.4 Hemoglobin 15.2 g/dL 12.0-16.0 Hematocrit 46 % 35-47 Mean Corpuscular Volume 93 fL 80-97 Mean Corpuscular Hemoglobin 31 pg 27-31 Mean Corpuscular HGB Conc 33 g/dL 31-36 Red Cell Distribution Width 14 % 10.5-15 Platelet Count 219 10^3/uL 150-450 Mean Platelet Volume 9 um3 7.4-10.4 Abs Neutrophils 5.8 10^3/uL 1.5-7.7 Abs Lymphocytes 2.9 10^3/uL 1.0-4.8 Abs Monocytes 0.6 10^3/uL 0-0.8 Abs Eosinophils 0.1 10^3/uL 0-0.6 Abs Basophils 0.1 10^3/uL 0-0.2 Abs Nucleated RBC 0 10^3/uL Granulocyte % 61.0 % 38-83 Lymphocyte % 30.5 % 25-47 Monocyte % 6.3 % 1-9 Eosinophil % 1.3 % 0-6 Basophil % 0.9 % 0-2 Nucleated Red Blood Cells % 0 Comp Metabolic Panel 01/09/2017 Sodium 138 mmol/L 133-145 Potassium 4.0 mmol/L 3.5-5.0 Chloride 103 mmol/L 101-111 Co2 Carbon Dioxide 27 mmol/L 22-32 Anion Gap 8 mmol/L 2-11 Glucose 98 mg/dL 70-100 Blood Urea Nitrogen 17 mg/dL 6-24 Creatinine 0.92 mg/dL 0.51-0.95 BUN/Creatinine Ratio 18.5 8-20 Calcium 10.4 mg/dL High 8.6-10.3 Total Protein 7.4 g/dL 6.4-8.9 Albumin 4.2 g/dL 3.2-5.2 Globulin 3.2 g/dL 2-4 Albumin/Globulin Ratio 1.3 1-3 Total Bilirubin 0.60 mg/dL 0.2-1.0 Alkaline Phosphatase 75 U/L 34-104 Alt 15 U/L 7-52 Ast 16 U/L 13-39 Egfr Non- 62.5 >60 Egfr 80.4 >60 2 Vitamin B12 And Folate Serum 01/09/2017 Vitamin B12 441 pg/mL 180-914 3 Folic Acid (Folate) 5.07 ng/mL >3.99 Laboratory test finding 01/09/2017 Vitamin D, 1,25 Dihydroxy 48 pg/mL 18- 78 4 Laboratory test finding 11/14/2015 C Reactive Protein 5.86 mg/L High < 5.00 5 Erythrocyte Sed Rate 15 mm/Hr 0-30 6 CBC Auto Diff 11/14/2015 White Blood Count 6.6 10^3/uL 3.5-10.8 Red Blood Count 5.05 10^6/uL 4.0-5.4 Hemoglobin 15.4 g/dL 12.0-16.0 Hematocrit 47 % 35-47 Mean Corpuscular Volume 93 fL 80-97 Mean Corpuscular Hemoglobin 31 pg 27-31 Mean Corpuscular HGB Conc 33 g/dL 31-36 Red Cell Distribution Width 15 % 10.5-15 Platelet Count 225 10^3/uL 150-450 Mean Platelet Volume 10 um3 7.4-10.4 Abs Neutrophils 4.0 10^3/uL 1.5-7.7 Abs Lymphocytes 1.7 10^3/uL 1.0-4.8 Abs Monocytes 0.6 10^3/uL 0-0.8 Abs Eosinophils 0.1 10^3/uL 0-0.6 Abs Basophils 0.1 10^3/uL 0-0.2 Abs Nucleated RBC 0 10^3/uL Granulocyte % 60.8 % 38-83 Lymphocyte % 26.4 % 25-47 Monocyte % 9.6 % High 1-9 Eosinophil % 1.7 % 0-6 Basophil % 1.5 % 0-2 Nucleated Red Blood Cells % 0.1 Comp Metabolic Panel 11/14/2015 Sodium 140 mmol/L 133-145 Potassium 4.7 mmol/L 3.5-5.0 Chloride 102 mmol/L 101-111 Co2 Carbon Dioxide 33 mmol/L High 22-32 Anion Gap 5 mmol/L 2-11 Glucose 97 mg/dL 70-100 Blood Urea Nitrogen 16 mg/dL 6-24 Creatinine 0.90 mg/dL 0.51-0.95 BUN/Creatinine Ratio 17.8 8-20 Calcium 10.2 mg/dL 8.6-10.3 Total Protein 7.0 g/dL 6.4-8.9 Albumin 4.0 g/dL 3.2-5.2 Globulin 3.0 g/dL 2-4 Albumin/Globulin Ratio 1.3 1-3 Total Bilirubin 0.50 mg/dL 0.2-1.0 Alkaline Phosphatase 62 U/L 34-104 Alt 13 U/L 7-52 Ast 15 U/L 13-39 Egfr Non- 64.3 >60 Egfr 82.7 >60 7 Laboratory test finding 11/14/2015 TSH (Thyroid Stim 1.65 mcIU/mL 0.34- 5.60 8 Horm) Iron & Iron Binding 11/14/2015 Iron 63 g/dL 50-212 Capacity Unsaturated Iron Binding 368 g/dL Total Iron Binding Capacity 431 g/dL 250-450 % Iron Saturation 15 % 15-55 Laboratory test finding 11/14/2015 Ferritin 85.9 ng/mL 11-307 9 Laboratory test finding 09/24/2015 C Reactive Protein 19.62 mg/L High < 5.00 10 Cyclic Citrullinated Pep Igg >250.0 U 11 Erythrocyte Sed Rate 14 mm/Hr 0-30 Hla B27 09/24/2015 Hla B27 Negative 12 Hla B27 Interp See Comment 13 Laboratory test finding 09/24/2015 Uric Acid 5.8 mg/dL 2.3-6.6 Rheumatoid Factor 27 IU/mL <15 14 Angiotensin Converting Enzyme 30 U/L 8 - 53 15 CBC Auto Diff 09/24/2015 White Blood Count 13.5 10^3/uL High 3.5-10.8 Red Blood Count 5.11 10^6/uL 4.0-5.4 Hemoglobin 15.2 g/dL 12.0-16.0 Hematocrit 47 % 35-47 Mean Corpuscular Volume 91 fL 80-97 Mean Corpuscular Hemoglobin 30 pg 27-31 Mean Corpuscular HGB Conc 33 g/dL 31-36 Red Cell Distribution Width 16 % High 10.5-15 Platelet Count 208 10^3/uL 150-450 Mean Platelet Volume 9 um3 7.4-10.4 Abs Neutrophils 10.0 10^3/uL High 1.5-7.7 Abs Lymphocytes 2.5 10^3/uL 1.0-4.8 Abs Monocytes 0.8 10^3/uL 0-0.8 Abs Eosinophils 0.1 10^3/uL 0-0.6 Abs Basophils 0.1 10^3/uL 0-0.2 Abs Nucleated RBC 0.01 10^3/uL Granulocyte % 74.1 % 38-83 Lymphocyte % 18.7 % Low 25-47 Monocyte % 5.6 % 1-9 Eosinophil % 0.7 % 0-6 Basophil % 0.9 % 0-2 Nucleated Red Blood Cells % 0 Hepatitis Acute Panel 09/24/2015 Hepatitis C Antibody Nonreactive Nonreactive Hepatitis A AB Igm Nonreactive Nonreactive Hepatitis B Core AB Igm Nonreactive Nonreactive Hepatitis B Surface Ag Nonreactive Nonreactive Celiac Panel 09/24/2015 Tissue Transglutaminase IgA Ab <1.2 U/mL 16 Immunoglobulin A 217 mg/dL 61 - 356 Celiac Interpretation See Comment 17 Celiac Hla DQ1/DQ2 09/24/2015 Hla-Dqa1 SEE BELOW 18 Hla-DQB1 SEE BELOW 19 Celiac Gene Pairs Present? Yes Celiac Gene Interpretation See Comment 20 Laboratory test finding 09/24/2015 Vitamin B12 199 pg/mL 180-914 21 Quantiferon Gold TB 09/24/2015 M tuberculosis by Negative Negative 22 Quantiferon TB Ag minus Nil Result 0.08 IU/mL TB Mitogen minus Nil Result > 10.00 IU/mL TB Nil Result 0.03 IU/mL 23 Laboratory test finding 09/24/2015 Creatine Kinase(CK) 33 U/L 10-223 Vitamin D 1,25 And Vitamin 09/24/2015 Vitamin D Total 25(Oh) 11.6 ng/mL Low 30-50 D,2 Vitamin D, 1,25 Dihydroxy 45 pg/mL 18-78 24 1 Acute inflammation: >10.00 2 Because ethnic data is not always readily available, this report includes an eGFR for both -Americans and non- Americans. The National Kidney Disease Education Program (NKDEP) does not endorse the use of the MDRD equation for patients that are not between the ages of 18 and 70, are , have extremes of body size, muscle mass, or nutritional status, or are non- or non-. According to the National Kidney Foundation, irrespective of diagnosis, the stage of the disease is based on the level of kidney function: Stage Description GFR(mL/min/1.73 m(2)) 1 Kidney damage with normal or decreased GFR 90 2 Kidney damage with mild decrease in GFR 60-89 3 Moderate decrease in GFR 30-59 4 Severe decrease in GFR 15-29 5 Kidney failure <15 (or dialysis) 3 Normal Range 180 to 914 Indeterminate Range 145 to 180 Deficient Range <145 4 ADDITIONAL INFORMATION This test was developed and its performance characteristics determined by [facility] in a manner consistent with CLIA requirements. This test has not been cleared or approved by the U.S. Food and Drug Administration. Test Performed by: [facility] - [address] [address] 5 Acute inflammation: >10.00 6 Please check labs this week 7 Because ethnic data is not always readily available, this report includes an eGFR for both -Americans and non- Americans. The National Kidney Disease Education Program (NKDEP) does not endorse the use of the MDRD equation for patients that are not between the ages of 18 and 70, are , have extremes of body size, muscle mass, or nutritional status, or are non- or non-. According to the National Kidney Foundation, irrespective of diagnosis, the stage of the disease is based on the level of kidney function: Stage Description GFR(mL/min/1.73 m(2)) 1 Kidney damage with normal or decreased GFR 90 2 Kidney damage with mild decrease in GFR 60-89 3 Moderate decrease in GFR 30-59 4 Severe decrease in GFR 15-29 5 Kidney failure <15 (or dialysis) 8 Please check labs this week 9 Please check labs this week 10 Acute inflammation: >10.00 11 Interpretation: Strong Positive (>=60.0) REFERENCE VALUE <20.0 (Negative) Test Performed by: [place] [address] Motor Vehicle Technician: Sagar Bowen II, M.D., Ph.D. 12 REFERENCE VALUE Not Applicable 13 RESULT: HLA-B27 antigen was not detected. ADDITIONAL INFORMATION Method: Flow Cytometry Performing Laboratory CLIA# [id number] Test Performed by: [place] [address] Motor Vehicle Technician: Sagar Bowen II, M.D., Ph.D. 14 Test Performed by: [place] [address] Motor Vehicle Technician: Sagar Bowen II, M.D., Ph.D. 15 Test Performed by: [place] [address] Motor Vehicle Technician: Sagar Bowen II, M.D., Ph.D. 16 REFERENCE VALUE <4.0 (Negative) Test Performed by: [place] [address] Motor Vehicle Technician: Sagar Bowen II, M.D., Ph.D. 17 Negative serology. Celiac disease unlikely. However, approximately 10% of patients with celiac disease are seronegative. Also, patients who are already adhering to a gluten-free diet may be seronegative. If celiac disease is highly clinically suspected, consider HLA-DQ typing. Test Performed by: [place] [address] Motor Vehicle Technician: Sagar Bowen II, M.D., Ph.D. 18 RESULT: 01,03 REFERENCE VALUE Not Applicable 19 RESULT: 03:02,05:01 DQ Serologic Equivalent: 8,5 REFERENCE VALUE Not Applicable 20 These genes are permissive for celiac disease. The absence of HLA celiac permissive genes would make the presence of celiac disease unlikely. However, these genes can also be present in the normal population. ADDITIONAL INFORMATION Method: Molecular typing of HLA antigens performed using reverse SSOP and/or SSP methods, reported as serological equivalents and low to medium resolution molecular values. Performing Laboratory CLIA# [id number] Test Performed by: [place] [address] Motor Vehicle Technician: Sagar Bowen II, M.D., Ph.D. 21 Normal Range 180 to 914 Indeterminate Range 145 to 180 Deficient Range <145 22 No interferon-gamma response to M. tuberculosis antigens was detected. Infection with M. tuberculosis is unlikely. A negative result alone does not exclude infection with M. tuberculosis. For detailed information regarding test interpretation see: [email or web address] 23 Test Performed by: [place] [address] Motor Vehicle Technician: Sagar Bowen II, M.D., Ph.D. 24 Test Performed by: [address] [address] Motor Vehicle Technician: Sagar Bowen II, M.D., Ph.D. Procedures Date CPT Code Description Status 12/03/2017 86592 EKG Tracing & Interpretation Completed 12/11/2016 Inject/Drain Joint/Bursa Major W/O US Completed 06/25/2016 57728 Arthroscopy Shoulder,W/Rotator Cuff Repair Completed 06/25/2016 61082 Arthroscopy Shoulder,W/Rotator Cuff Repair Completed 06/25/2016 23911 Arthroscopy,Shoulder Decompression Of Subacromial Space Completed W/Acromio 06/25/2016 06868 Arthroscopy,Shoulder Decompression Of Subacromial Space Completed W/Acromio 06/25/2016 31218 Arthroscopy,Shoulder,Distal Claviculectomy Incl Dist Completed Articular SR 06/25/2016 94451 Arthroscopy,Shoulder,Distal Claviculectomy Incl Dist Completed Articular SR 06/25/2016 30146 Arthroscopy Shoulder Debridement Extensive Completed 06/25/2016 86915 Arthroscopy Shoulder Debridement Extensive Completed 04/03/2016 18678 Polysomnography Sleep Staging 4+ Parameters W/Cpap Completed 11/18/2015 39676 Polysomnography Sleep Staging 4+ Parameters Completed 03/19/2015 67118 Pulmonary Function><Bronchodil Completed 10/25/2013 Inject/Drain Joint/Bursa Major W/O US Completed 06/30/2013 Inject/Drain Joint/Bursa Major W/O US Completed Encounters Type Date Location Provider CPT E/M Dx Office Visit 01/09/2017 [facility]ology Services Carlos Christy M.D. 54634 M05.79 11:40a Of [facility] Z79.899 E53.8 E55.9 Office Visit 12/11/2016 1:45p [facility] [address] M19.011 C.M.A. M75.21 M75.121 Office Visit 11/18/2016 1:45p [facility] [address] M19.011 C.M.A. M75.21 M75.111 M25.511 Office Visit 09/30/2016 1:30p [facility] [address] M19.011 C.M.A. M75.21 M75.111 Z47.89 Office Visit 08/25/2016 1:00p [facility]ology Services Carlos Christy 90030 M05.79 Of Marlene Lopez.DKatelyn Z79.899 F33.1 G89.4 Office Visit 06/25/2016 11:10a [facility] [place], [address] R09.02 Assoc, Hospitalists Jessica E66.01 J43.9 Office Visit 05/30/2016 12:00p Rheumatology Services Carlos Christy 87753 Z68.42 Of Marlene Lopez Z79.899 M25.511 M05.79 G89.4 Z23 Office Visit 05/14/2016 9:15a Pul[facility]ology [facility] Sleep Ana Paula Forrest 20550 G47.33 Services Of Marlene THACKER RN, [facility] F17.210 E66.01 Z68.42 Office Visit 04/08/2016 1:15p [facility] [address] M19.011 C.M.A. S43.421D M75.21 Office Visit 03/07/2016 9:00a [place] [address] M19.011 C.M.A. S43.421D Office Visit 02/26/2016 2:15p Pulmonology And Sleep Ana Paula Forrest 84165 G47.33 Services Of [facility] ANSHUL THACKER, [facility] F17.210 Office Visit 01/30/2016 11:00a [facility] Services Of Didi Chao M.D. 20[address] M25.511 C.M.A. S43.421D M19.011 Office Visit 11/13/2015 1:20p Rheumatology Services Carlos Christy 84242 M05.79 Of Marlene Lopez E53.8 E55.9 Z79.899 R20.8 Z23 Office Visit 10/24/2015 2:00p Pulmonology And Sleep Ana Paula Forrest 55502 G47.9 Services Of Marlene THACKER RN, [facility] R06.83 G47.61 E66.01 F17.210 Office Visit 10/02/2015 1:20p Rheumatology Services Carlos Christy 76855 M05.79 Of Marlene Lopez J98.11 E53.8 E55.9 Z79.52 Office Visit 09/18/2015 2:00p Rheumatology Services Carlos Christy, 54217 M05.79 Of Marlene Lopez R06.02 D75.1 Z79.899 M79.1 L13.0 R20.8 M54.2 Office Visit 01/10/2014 3:15p Orthopedic Services Of Rangel Miranda M.D. 73900 718.81 C.M.A. Office Visit 10/25/2013 1:30p [facility] Of Rangel Miranda M.D. 65536 718.81 C.M.A. 726.19 Office Visit 09/14/2013 9:30a Orthopedic Services Of ANISH Zimmerman 62101 719.41 C.M.A. Office Visit 06/30/2013 9:00a Orthopedic Services Of Rangel Miranda M.D. 96880 719.41 C.M.A. 726.19 Office Visit 08/20/2009 3:30p Neurosurgery Services Of Kip Pate, 66610 723.4 Marlene Lopez Office Visit 08/13/2009 2:45p Neurosurgery Services Of Kip Pate, 12051 723.4 [facility] Jessica 721.0 Plan of Care Future Appointment(s):01/18/2018 1:40 pm - Raphael Monk M.D. at [facility]12/09/2017 1:15 pm - Traveling ECHO 1 at [facility]12/30/2017 8:30 am - Raphael Monk M.D. at [facility]2017 - Raphael Monk M.D.I10 Essential (primary) xupegyazheweK28.31 Abnormal electrocardiogram [ECG] [EKG]R06.02 Shortness of breathNew Orders: EchocardiogramLexiscan Nuclear MyoviewFollow up:6-9 wks ov to discuss kakyyF81.9 Obesity, muroexgcgyhL96.33 Obstructive sleep apnea (adult) (pediatric )J44.9 Chronic obstructive pulmonary disease, xesydwcyvxdD18.2 Mixed hyperlipidemia
[2017-12-28 16:12] VITALS: BP 139/84
--- NOTE | 2017-12-28 16:27 | UC ---
Respiratory Complaint HPI - HPI Summary HPI Summary: 62 yo female presents with productive cough, increased work of breathing, and right rib pain with inspiration and coughing for the last 4 days. She has not taken anything OTC for her symptoms. She has a hx of RA, DM2, asthma, and hypothyroid. She denies fever, chills, sore throat, chest pain, abdomina pain, n /v/d/c. 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 Onset/Duration: Gradual Onset Severity Initially: Moderate Severity Currently: Severe Pain Intensity: 9 Pain Scale Used: 0-10 Numeric Character: Cough: Productive - Allergies/Home Medications Allergies/Adverse Reactions: Allergies Allergy/AdvReac Type Severity Reaction Status Date / Time Sulfa (Sulfonamide Allergy Severe Hives Verified 12/28/17 16:12 Antibiotics) latex Allergy Intermediate Rash Verified 12/28/17 16:12 levofloxacin [From Levaquin] Allergy Intermediate Rash Verified 12/28/17 16:12 bacitracin Allergy Itching Verified 12/28/17 16:12 [From Neosporin ([id number])] neomycin Allergy Itching Verified 12/28/17 16:12 [From Neosporin (iaw-hiq-[id number])] polymyxin B Allergy Itching Verified 12/28/17 16:12 [From Neosporin ([id number]-[id number])] acetaminophen [From Percocet] AdvReac GI Upset Verified 12/28/17 16:12 oxycodone [From Percocet] AdvReac GI Upset Verified 12/28/17 16:12 Home Medications: Home Medications Albuterol HFA INHALER* [Ventolin HFA Inhaler*] 2 puff INH Q4H PRN 12/28/17 [ History Confirmed 12/28/17] Cholecalciferol TAB* [Vitamin D TAB*] 1,000 units PO DAILY 12/28/17 [History Confirmed 12/28/17] Cyanocobalamin TAB* [Vitamin B12 TAB*] 1,000 mcg PO DAILY 12/28/17 [History Confirmed 12/28/17] Spironolact/Hydrochlorothiazid [Aldactazide 25-25 mg-] 1 tab PO DAILY 12/28/17 [ History Confirmed 12/28/17] Umeclidinium [place] [Incruse Ellipta] 62.5 mcg IN DAILY 12/28/17 [History Confirmed 12/28/17] PMH/Surg Hx/FS Hx/Imm Hx - Additional Past Medical History Additional PMH: RA Endocrine History: Diabetes, Hypothyroidism Respiratory History: Asthma - Surgical History Surgical History: Yes Surgery Procedure, Year, and Place: appendectomy,cholecystectomy, c-sections x2, tubal. 3 ARTHROSCOPIC Rt KNEE & LATERAL RELEASE. CARPAL TUNNEL - AMARIS HANDS & ELBOW. LT SHOULDER RTC REPAIR - Family History Known Family History: Positive: Other Family History: NON CONTRIBUTORY - Social History Occupation: Disabled Alcohol Use: None Substance Use Type: Marijuana Substance Use Comment - Amount & Last Used: daily Smoking Status (MU): Former Smoker Type: Cigarettes Amount Used/How Often: 1/2 PPD smoked for 30 years Length of Time of Smoking/Using Tobacco: began at 18 years of age Have You Smoked in the Last Year: Yes When Did the Patient Quit Smoking/Using Tobacco: June 2016 Household Exposure Type: Cigarettes Review of Systems Constitutional: Negative Skin: Negative Eyes: Negative ENT: Negative Respiratory: Shortness Of Breath, Cough Cardiovascular: Negative Gastrointestinal: Negative Genitourinary: Negative Neurovascular: Negative Neurological: Negative Psychological: Negative All Other Systems Reviewed And Are Negative: Yes Physical Exam - Summary Physical Exam Summary: GENERAL: NAD. WDWN. No pain distress. SKIN: No rashes, sores, lesions, or open wounds. HEENT: Head: AT/NC Eyes: Conjunctiva clear without inflammation or discharge. Ears: Hearing grossly normal. TMs intact, no bulging, erythema, or edema. Nose: Nasal mucosa pink and moist. NTTP maxillary and frontal sinus. Throat: Posterior oropharynx without exudates, erythema, or tonsillar enlargement. Uvula midline. NECK: Supple. Nontender. No lymphadenopathy. CHEST: Mild wheezing throughout with decreased breath sounds as bases. No r/r. No accessory muscle use. Breathing comfortably and in no distress. CV: RRR. Without m/r/g. Pulses intact. Cap refill <2seconds NEURO: Alert. PSYCH: Age appropriate behavior. Triage Information Reviewed: Yes Vital Signs: Initial Vital Signs Temp 98.2 F 12/28/17 16:03 Pulse 79 12/28/17 16:03 Resp 16 12/28/17 16:03 BP 139/84 12/28/17 16:03 Pulse Ox 97 12/28/17 16:03 Vital Signs Reviewed: Yes UC Diagnostic Evaluation - Laboratory O2 Sat by Pulse Oximetry: 97 Respiratory Course/Dx - Course Course Of Treatment: CXR: IMPRESSION: PATCHY BIBASILAR INFILTRATES. Given her significant comorbidities and allergy to levaquin - will rx for Augmentin and Zpak. I strongly advised her to have close follow up and to be rechecked by her PCP in 3-4 days. If her symptoms worsen or if she develops a fever or chest pain or worsening SOB - to go to the ED immediately. Pt voiced understanding and is in agreement with the plan. - Differential Dx/Diagnosis Provider Diagnoses: BIBASILAR PNA Discharge - Sign-Out/Discharge Documenting (check all that apply): Patient Departure All imaging exams completed and their final reports reviewed: Yes - Discharge Plan Condition: Stable Disposition: HOME Prescriptions: Amoxicillin/Clavulanate TAB* [Augmentin TAB 875*] 875 mg PO BID #20 tab Azithromycin TAB* [Zithromax TAB (Z-YAMILETH) 250 mg #6 tabs] 2 tab PO .TODAY, THEN 1 DAILY #1 yamileth Patient Education Materials: Pneumonia (ED) Referrals: Isaiah Moreno MD [Primary Care Provider] - 3 Days Additional Instructions: If you develop a fever, shortness of breath, chest pain, new or worsening symptoms - please call your PCP or go to the ED. 1) Please schedule a follow up with your PCP in 3-4 days for a recheck of your symptoms 2) If you develop a fever or worsening cough/shortness of breath, or develop chest pain - please go to the ER immediately. - Billing Disposition and Condition Condition: STABLE Disposition: Home
== END 2017-12-28 17:30 | disposition home or self-care (01) ==
LOC: UCEAST 15:50
DX: J18.9 Pneumonia, unspecified organism (principal); J45.909 Unspecified asthma, uncomplicated; Z88.5 Allergy status to narcotic agent; Z88.2 Allergy status to sulfonamides; Z88.6 Allergy status to analgesic agent; Z88.1 Allergy status to other antibiotic agents; Z88.3 Allergy status to other anti-infective agents; Z91.040 Latex allergy status; Z87.891 Personal history of nicotine dependence
CPT/HCPCS: 71046; 99212; G0463

== ENCOUNTER → 2018-01-04 15:57 | Emergency (ER) | payer MEDICARE, MEDICAID ==
[~2018-01-04 15:57] MED LIST changes: +Albuterol/Ipratropium NEB.SOL* Albuterol 2.5 MG/Ipratropium 0.5 MG 3 ML INH ONE; -Atracurium* 10 MG/ML 10 ML VIAL ONE; -Buffered Lidocaine 1% SYR 3ML* 3 ML/SYR SYRINGE INTRADERM ONE; -Bupivacaine 0.25% SDV* 30 ML ONE; -Dexamethasone TAB* 4 MG ONE; -Dexamethasone TAB* 4 MG PO ONE; -Famotidine IV* 10 MG/ML 2 ML (20 mg) IV ONE; -Famotidine IV* 10 MG/ML 2 ML (20 mg) ONE; -KETAMINE HCL* 50 MG/ML 10 ML VIAL ONE; -Midazolam* 1 MG/ML 5 ML VIAL (5 MG) ONE; -Morphine INJ* 2 MG/ML 1 ML SYRINGE IV PRN; +NS 0.9% 1000 ML* 1,000 ML IV ONE; -PROCHLORPERAZINE INJ 5 MG/ML 2 ML VIAL IV PRN; -Scopolamine 1.5 mg* PATCH TRANSDERM PRN; +cefTRIAXone(*) 1 GM in NS 0.9% 50 ML* 50 ML IVPB ONE; -fentaNYL* 50 MCG/ML 2 ML VIAL (100 MCG VIAL) IV PRN; -fentaNYL* 50 MCG/ML 5 ML VIAL (250 MCG VIAL) ONE; +methylPREDNISolone 125 MG* 2 ML VIAL IV ONE; -oxyCODONE/Acetamin 5/325 MG* TAB PO PRN
--- NOTE | 2018-01-04 16:27 | ED ---
Respiratory - HPI Summary HPI Summary: 62-year-old female presents with cough for the past week. She states she was diagnosed with pneumonia a week ago. States she completed azithromycin and has a couple does of the Augmentin left. She states her symptoms have been getting worse. She denies any nausea or vomiting or abdominal pain. She admits to a sore throat and sinus congestion. She admits to right-sided neck pain. States that her glands seem to be swollen. She also states that chest pain when she takes deep breath. She denies any pain or swelling in her legs. She has history of asthma and COPD. She states she's been using her inhalers more frequently. She is also diabetic. No fevers. No headache. - History of Current Complaint Chief Complaint: EDUpperRespComplaint Stated Complaint: DIFF BREATHING/NECK PAIN Time Seen by Provider: 01/04/18 16:08 Pain Intensity: 8 - Allergy/Home Medications Allergies/Adverse Reactions: Allergies Allergy/AdvReac Type Severity Reaction Status Date / Time Sulfa (Sulfonamide Allergy Severe Hives Verified 01/04/18 16:04 Antibiotics) latex Allergy Intermediate Rash Verified 01/04/18 16:04 levofloxacin [From Levaquin] Allergy Intermediate Rash Verified 01/04/18 16:04 bacitracin Allergy Itching Verified 01/04/18 16:04 [From Neosporin ([id number]-[id number])] neomycin Allergy Itching Verified 01/04/18 16:04 [From Neosporin (ttc-eyq-kqcib)] polymyxin B Allergy Itching Verified 01/04/18 16:04 [From Neosporin (jjh-oeo-aimkb)] acetaminophen [From Percocet] AdvReac GI Upset Verified 01/04/18 16:04 oxycodone [From Percocet] AdvReac GI Upset Verified 01/04/18 16:04 PMH/Surg Hx/FS Hx/Imm Hx Endocrine/Hematology History: Reports: Hx Thyroid Disease Denies: Hx Diabetes, Hx Systemic Lupus Erythematosus Cardiovascular History: Reports: Hx Hypertension Denies: Hx Congestive Heart Failure, Hx Pacemaker/ICD Respiratory History: Reports: Hx Asthma, Hx Chronic Obstructive Pulmonary Disease (COPD), Hx Sleep Apnea, Other Respiratory Problems/Disorders - bronchitis GI History: Reports: Hx Diverticulosis - Diverticulitis, Hx Irritable Bowel, Other GI Disorders - diverticulitis 04/07 History: Denies: Hx Dialysis, Hx Renal Disease Musculoskeletal History: Reports: Hx Arthritis - Rhuematoid, Hx Rheumatoid Arthritis, Hx Tendonitis, Other Musculoskeletal History - Right Shoulder Pain Sensory History: Reports: Hx Contacts or Glasses Denies: Hx Hearing Aid Opthamlomology History: Reports: Hx Contacts or Glasses Psychiatric History: Reports: Hx Anxiety, Hx Depression, Hx Bipolar Disorder Denies: Hx Panic Disorder - Cancer History Hx Chemotherapy: No - Surgical History Surgery Procedure, Year, and Place: appendectomy,cholecystectomy, c-sections x2, tubal. 3 ARTHROSCOPIC Rt KNEE & LATERAL RELEASE. CARPAL TUNNEL - AMARIS HANDS & ELBOW. LT SHOULDER RTC REPAIR Hx Anesthesia Reactions: No Infectious Disease History: No Infectious Disease History: Denies: Hx Clostridium Difficile, Hx Hepatitis, Hx Human Immunodeficiency Virus (HIV), Hx of Known/Suspected MRSA, Hx Shingles, Hx Tuberculosis, Traveled Outside the in Last 30 Days - Family History Known Family History: Positive: Other Family History: NON CONTRIBUTORY - Social History Alcohol Use: None Substance Use Type: Reports: Marijuana Substance Use Comment - Amount & Last Used: daily Hx Tobacco Use: Yes Smoking Status (MU): Former Smoker Type: Cigarettes Amount Used/How Often: 1/2 PPD smoked for 30 years Length of Time of Smoking/Using Tobacco: began at 18 years of age Have You Smoked in the Last Year: Yes Review of Systems Negative: Fever Positive: Sore Throat, Nasal Discharge Positive: Chest Pain. Negative: Palpitations Positive: Shortness Of Breath, Cough Positive: Myalgia - neck pain, right side All Other Systems Reviewed And Are Negative: Yes Physical Exam Triage Information Reviewed: Yes Vital Signs On Initial Exam: Initial Vitals Temp Pulse Resp BP Pulse Ox 98.9 F 77 20 157/79 94 01/04/18 16:01 01/04/18 16:01 01/04/18 16:01 01/04/18 16:01 01/04/18 16:01 Vital Signs Reviewed: Yes Appearance: Positive: Well-Appearing Skin: Positive: Warm, Dry Head/Face: Positive: Normal Head/Face Inspection Eyes: Positive: Normal, EOMI, JESUS ALBERTO, Conjunctiva Clear ENT: Positive: Normal ENT inspection, Pharynx normal, TMs normal Neck: Positive: Enlarged Nodes @ - cervical Respiratory/Lung Sounds: Positive: Breath Sounds Present, Decreased Breath Sounds Cardiovascular: Positive: Normal, RRR Abdomen Description: Positive: Nontender, Soft Bowel Sounds: Positive: Present Musculoskeletal: Positive: Normal Neurological: Positive: Normal Psychiatric: Positive: Normal Diagnostics - Vital Signs Vital Signs Temp Pulse Resp BP Pulse Ox 01/04/18 16:01 98.9 F 77 20 157/79 94 - Laboratory Result Diagrams: 01/04/18 16:20 01/04/18 16:20 Lab Statement: Any lab studies that have been ordered have been reviewed, and results considered in the medical decision making process. - Radiology chest Radiology Interpretation Completed By: Radiologist Summary of Radiographic Findings: 1. PATCHY DENSITY OF THE LOWER BILATERAL LUNGS COULD BE DUE TO INFECTIOUS PNEUMONIA OR. PULMONARY EDEMA. 2. THERE IS MILD TO MODERATE PERIBRONCHIAL CUFFING ON THE LATERAL VIEW CHEST X-RAY WHICH. COULD BE SEEN IN THE SETTING OF BRONCHITIS. - EKG No standard instances Cardiac Rate: NL EKG Rhythm: Sinus Rhythm EKG Comparison: No Significant Change Summary of EKG Findings: sinus rhythm Re-Evaluation - Re-Evaluation First Eval Re-Evaluation Time: 18:13 Change: Improved Comment: feeling better, discussed admission vs going home and would like to go home Disposition - Course Course Of Treatment: 62-year-old female presents with cough for the past week. She states she was diagnosed with pneumonia a week ago. States she completed azithromycin and has a couple does of the Augmentin left. She states her symptoms have been getting worse. She denies any nausea or vomiting or abdominal pain. She admits to a sore throat and sinus congestion. She admits to right-sided neck pain. States that her glands seem to be swollen. She also states that chest pain when she takes deep breath. She denies any pain or swelling in her legs. She has history of asthma and COPD. She states she's been using her inhalers more frequently. She is also diabetic. No fevers. No headache. on exam decreased breath sound heard. lymph adenopathy felt in neck. chest xray shows patchy density that could be pnuemonia vs pulmonary edema. also has cuffing could be consistent with bronchitis. labs wbc 12. bnp normal. troponin normal. lactic and procalcontin normal. o2 stat when walking is 92. discussed with patient of admission and patient declined. will try a course of doxcycline and told if anything to changes to return to ED. patient understand and agrees with plan. - Differential Dx - Cardiopulmonary Differential Diagnoses - Cardiopulmonary: Bronchitis, Exacerbation Of COPD, Lower Resp Infection - Diagnoses Provider Diagnoses: Pneumonia, Acute bronchitis, COPD (chronic obstructive pulmonary disease) Discharge - Sign-Out/Discharge Documenting (check all that apply): Patient Departure - Discharge Plan Condition: Good Disposition: HOME Prescriptions: DOXYcycline CAP(*) [DOXYcycline 100MG CAP(*)] 100 mg PO BID #14 cap Fluconazole [Diflucan 150 MG (NF)] 150 mg PO ONCE #1 tab guaiFENesin/CODIEN 100MG-10MG* [Robitussin AC 100Mg-10Mg*] 5 ml PO Q6H PRN #100 ml MDD 20ml PRN Reason: Cough predniSONE TAB* [Deltasone 20 MG TAB*] 40 mg PO DAILY #12 tab Patient Education Materials: Acute Bronchitis (ED) Referrals: Isaiah Moreno MD [Primary Care Provider] - Additional Instructions: Take cough medication 5ml (1 teaspoon) every 6 hours as needed cough Use inhaler up to two puffs every 4-6 hours for cough Take steroid two tablets once a day for 5 days, then one tablet daily for 2 days after that take doxycycline twice a day for 7 days Take Tylenol for pain every 6 hours follow up with primary within 5 days Return to ED if develop any new or worsening symptoms - Billing Disposition and Condition Condition: GOOD Disposition: Home
[2018-01-04 16:31] LABS: ABS Basophils 0.1 10^3/ul (0-0.2); ABS Eosinophils 0.3 10^3/ul (0-0.6); ABS Lymphocytes 2.8 10^3/ul (1.0-4.8); ABS Monocytes 0.8 10^3/ul (0-0.8); ABS Neutrophils 8.3 10^3/ul (1.5-7.7); ABS Nucleated RBC 0 10^3/ul; Eosinophil % 2.3 % (0-6); Hematocrit 46 % (35-47); Hemoglobin 15.3 g/dl (12.0-16.0); Lymphocyte % 22.6 % (25-47); Mean Corpuscular HGB Conc 34 g/dl (31-36); Mean Corpuscular Hemoglobin 30 pg (27-31); Mean Corpuscular Volume 90 fL (80-97); Mean Platelet Volume 8.4 fL (7.4-10.4); Nucleated Red Blood Cells % 0.1; Platelet Count 277 10^3/ul (150-450); Red Blood Count 5.05 10^6/ul (4.00-5.40); Red Cell Distribution Width 14 % (10.5-15); White Blood Count 12.3 10^3/ul (3.5-10.8)
[2018-01-04 17:08] LABS: EGFR Non-African American 67.3 (>60)
[2018-01-04 18:05] LABS: Urine Appearance Clear; Urine Blood Negative (Negative); Urine Color Yellow; Urine Ketones Negative (Negative); Urine Protein Negative (Negative); Urine Red Blood Cell 1+(3-5/hpf) (Absent); Urine Urobilinogen Negative (Negative); Urine White Blood Cell 1+(6-10/hpf) (Absent)
[2018-01-04 19:16] VITALS: BP 118/71
== END | disposition home or self-care (01) ==
LOC: ED 15:57
DX: J18.9 Pneumonia, unspecified organism (principal); J44.9 Chronic obstructive pulmonary disease, unspecified; Z88.5 Allergy status to narcotic agent; Z88.2 Allergy status to sulfonamides; Z88.1 Allergy status to other antibiotic agents; Z88.3 Allergy status to other anti-infective agents; Z91.040 Latex allergy status; Z87.891 Personal history of nicotine dependence
CPT/HCPCS: 36415; 71046; 80053; 81003; 81015; 83605; 83880; 84145; 84484; 84702; 85025; 86140; 87040; 87086; 87899; 93005; 96365; 96375; 99283; A9270-GY; J0696; J2930

== ENCOUNTER 2019-04-18 14:29 | Inpatient (IN) | payer MEDICARE, MEDICAID ==
--- NOTE | 2019-04-18 14:45 | ED ---
Shortness of Breath - HPI Summary HPI Summary: Patient is a 64 y/o F presenting to the ED for a chief complaint of intermittent shortness of breath for the last 2 months. On 04/18/19, the shortness of breath worsened while walking so patient called EMS. Denies CP. No alleviating factors are noted. Patient also notes left foot edema that began a few days ago, abdominal distention, and rash on her abdomen that she noticed while going to the bathroom. PMHx is significant for COPD and sleep apnea, but denies CHF or blood clots. FMHx of blood clots is also denied. She denies taking blood thinners. Patient takes Symbicort. - History of Current Complaint Chief Complaint: EDShortnessOfBreath Time Seen by Provider: 04/18/19 14:42 Hx Obtained From: Patient Onset/Duration: Sudden Onset, Lasting Weeks, Still Present Timing: Constant Current Severity: Moderate Dyspnea At: Rest Aggravating Factors: Other - Exertion Alleviating Factors: Nothing Associated Signs & Symptoms: Edema - Left foot Related History: Obesity - Allergy/Home Medications Allergies/Adverse Reactions: Allergies Allergy/AdvReac Type Severity Reaction Status Date / Time Sulfa (Sulfonamide Allergy Severe Hives Verified 02/24/19 11:51 Antibiotics) latex Allergy Intermediate Rash Verified 02/24/19 11:51 levofloxacin [From Levaquin] Allergy Intermediate Rash Verified 02/24/19 11:51 acetaminophen [From Percocet] Allergy GI Upset Verified 04/18/19 17:36 bacitracin Allergy Itching Verified 02/24/19 11:51 [From Neosporin ([id number])] neomycin Allergy Itching Verified 02/24/19 11:51 [From Neosporin ([id number])] oxycodone [From Percocet] Allergy GI Upset Verified 04/18/19 17:36 polymyxin B Allergy Itching Verified 02/24/19 11:51 [From Neosporin ([id number])] Home Medications: Home Medications Budesonide/Formote 160/4.5(NF) [Symbicort 160/4.5 (NF)] 2 puff INH BID PRN 12/12 [History Confirmed 04/18/19] HydroCODONE/Acetamin 10/325 NF [Buhl 10/325 (NF)] 1 tab PO Q6HR PRN MDD 4 tabs 12/22/16 [History Confirmed 04/18/19] Gabapentin CAP(*) [Neurontin 300 CAP(*)] 300 mg PO TID 01/22/17 [History Confirmed 04/18/19] metFORMIN* [Glucophage 500 MG TAB *] 500 mg PO BID 10/05/17 [History Confirmed 04/18/19] Atorvastatin* [Lipitor*] 20 mg PO QPM 12/17/17 [History Confirmed 04/18/19] Levothyroxine Sodium [Synthroid] 25 mcg PO QAM 12/17/17 [History Confirmed 04/18] Escitalopram * [Lexapro *] 20 mg PO DAILY 02/04/19 [History Confirmed 04/18/19] Omeprazole CAP (NF) [Prilosec CAP* 20 MG] 20 mg PO DAILY 02/04/19 [History Confirmed 04/18/19] Albuterol HFA INHALER* [Ventolin HFA Inhaler*] 1 - 2 puff INH Q4H PRN 04/18/19 [ History Confirmed 04/18/19] Naproxen [Naproxen 500 mg tab] 500 mg PO BID PRN 04/18/19 [History Confirmed ] QUEtiapine TAB* [Seroquel 300 MG TAB*] 300 mg PO BEDTIME 04/18/19 [History Confirmed 04/18/19] Spironolactone/HCTZ 25-25 MG* [Aldactazide 25-25*] 1 tab PO DAILY 04/18/19 [ History Confirmed 04/18/19] PMH/Surg Hx/FS Hx/Imm Hx Previously Healthy: Yes Endocrine/Hematology History: Reports: Hx Thyroid Disease Denies: Hx Anticoagulant Therapy, Hx Diabetes, Hx Systemic Lupus Erythematosus Cardiovascular History: Reports: Hx Hypertension - CONTROLLED BY MEDS Denies: Hx Congestive Heart Failure, Hx Pacemaker/ICD Respiratory History: Reports: Hx Asthma, Hx Chronic Obstructive Pulmonary Disease (COPD), Hx Sleep Apnea, Other Respiratory Problems/Disorders - bronchitis GI History: Reports: Hx Diverticulosis - Diverticulitis, Hx Irritable Bowel, Other GI Disorders - diverticulitis 04/07 History: Denies: Hx Dialysis, Hx Renal Disease Musculoskeletal History: Reports: Hx Arthritis - Rhuematoid, Hx Rheumatoid Arthritis, Hx Tendonitis, Other Musculoskeletal History - Right Shoulder Pain Sensory History: Reports: Hx Contacts or Glasses Denies: Hx Legally Blind, Hx Deafness, Hx Hearing Aid Opthamlomology History: Reports: Hx Contacts or Glasses Denies: Hx Legally Blind EENT History: Denies: Hx Deafness Psychiatric History: Reports: Hx Anxiety, Hx Depression, Hx Bipolar Disorder Denies: Hx Panic Disorder - Cancer History Hx Chemotherapy: No - Surgical History Surgical History: Yes Surgery Procedure, Year, and Place: appendectomy,cholecystectomy, c-sections x2, tubal. 3 ARTHROSCOPIC Rt KNEE & LATERAL RELEASE. CARPAL TUNNEL - AMARIS HANDS & ELBOW. LT SHOULDER RTC REPAIR Hx Anesthesia Reactions: No - Immunization History Date of Influenza Vaccine: 03/26/2019 Infectious Disease History: No Infectious Disease History: Denies: Hx Clostridium Difficile, Hx Hepatitis, Hx Human Immunodeficiency Virus (HIV), Hx of Known/Suspected MRSA, Hx Shingles, Hx Tuberculosis, Traveled Outside the in Last 30 Days - Family History Known Family History: Negative: Blood Disorder - Blood clots - Social History Occupation: Unemployed Lives: With Family Alcohol Use: None Hx Substance Use: Yes Substance Use Type: Reports: Marijuana Substance Use Comment - Amount & Last Used: daily Hx Tobacco Use: Yes Smoking Status (MU): Light Every Day Tobacco Smoker Type: Cigarettes Amount Used/How Often: 4 cigarettes day Length of Time of Smoking/Using Tobacco: began at 18 years of age Have You Smoked in the Last Year: Yes Review of Systems Positive: Shortness Of Breath Positive: Other - Positive abdominal distention Positive: Edema - Left foot Positive: Rash - Abdomen All Other Systems Reviewed And Are Negative: Yes Physical Exam - Summary Physical Exam Summary: Constitutional: Well-developed, Obese, Alert. (-) Distressed Skin: Warm, Dry HENT: Normocephalic; Atraumatic Eyes: Conjunctiva normal Neck: Musculoskeletal ROM normal neck. (-) JVD, (-) Stridor, (-) Nuchal rigidity Cardio: Rhythm regular, rate normal, Heart sounds normal; Intact distal pulses; Radial pulses are 2+ and symmetric. (-) Murmur Pulmonary/Chest wall: Effort normal. + crackles bases. (-) Respiratory distress , (-) Wheezes, (-) Rales Abd: Soft, (-) tenderness, (-) Distension, (-) Guarding, (-) Rebound. Pitting edema to the abdomen Musculoskeletal: Trace edema to the left foot Lymph: (-) Cervical adenopathy Neuro: Alert, Oriented x3 Psych: Mood and affect Normal Triage Information Reviewed: Yes Vital Signs On Initial Exam: Initial Vitals Temp Pulse Resp BP Pulse Ox 97.2 F 69 20 176/92 90 04/18/19 14:30 04/18/19 14:30 04/18/19 14:30 04/18/19 14:30 04/18/19 14:30 Vital Signs Reviewed: Yes Procedures - Sedation Patient Received Moderate/Deep Sedation with Procedure: No Diagnostics - Vital Signs Vital Signs Temp Pulse Resp BP Pulse Ox 04/18/19 14:30 97.2 F 69 20 176/92 90 - Laboratory Result Diagrams: 04/18/19 14:56 04/18/19 14:56 Lab Statement: Any lab studies that have been ordered have been reviewed, and results considered in the medical decision making process. - Radiology Chest X-ray Radiology Interpretation Completed By: Radiologist Summary of Radiographic Findings: Chest X-ray IMPRESSION: #. Probable mild pulmonary vascular congestion and interstitial edema superimposed on chronic obstructive pulmonary disease. Reviewed by Dr. Eagle. Course/Dx - Course Course Of Treatment: 64 y/o F w COPD p/w RADFORD. - PE obese, pitting edema to abdomen, bibasilar crackles. 84% on RA. Placed on 4L O2. Labs w normal trop, elevated BNP. Age adjusted d dimer: 620. EKG non ischemic. - CXR w pulm edema, suspect new onset CHF, Given 80 lasix. Admit to medicine. - Diagnoses Provider Diagnoses: Hypoxia, Heart failure, SOB (shortness of breath) - Physician Notifications Discussed Care of Patient With: Palma Santizo - At 16:52, Dr. Palma Santizo reviewed the patients case and agrees to admit the patient to [facility] with a diagnosis of hypoxia, heart failure, and SOB. Time Discussed With Above Provider: 16:52 Instructed by Provider To: Admit As Inpatient - Critical Care Time Critical Care Time: 30-74 min - 35 min, hypoxia. Discharge ED - Sign-Out/Discharge Documenting (check all that apply): Patient Departure - Admit - Discharge Plan Condition: Stable Disposition: ADMITTED TO [facility] - Billing Disposition and Condition Condition: STABLE Disposition: Admitted to [facility] - Attestation Statements Document Initiated by Danielibe: Yes Documenting Scribe: Christiana Hogue Provider For Whom Leigh is Documenting (Include Credential): Fady Eagle MD Scribe Attestation: I, Christiana Hogue, scribed for Fady Eagle MD on 04/18/19 at 2132. Scribe Documentation Reviewed: Yes Provider Attestation: The documentation as recorded by the [email or web address] accurately reflects the service I personally performed and the decisions made by me, Fady Eagle MD Status of Scribe Document: Viewed
[2019-04-18 15:08] LABS: Hematocrit 39 % (35-47); Hemoglobin 13.1 g/dL (12.0-16.0); Mean Corpuscular HGB Conc 33 g/dL (31-36); Mean Corpuscular Hemoglobin 32 pg (27-31); Mean Corpuscular Volume 95 fL (80-97); Mean Platelet Volume 8.4 fL (7.4-10.4); Platelet Count 246 10^3/uL (150-450); Red Blood Count 4.14 10^6 /uL (3.70-4.87); Red Cell Distribution Width 17 % (10-15); White Blood Count 8.1 10^3/uL (3.5-10.8)
[2019-04-18 15:27] LABS: ABS Basophils 0.1 10^3/ul (0-0.2); ABS Eosinophils 0.1 10^3/ul (0-0.6); ABS Lymphocytes 1.2 10^3/ul (1.0-4.8); ABS Monocytes 0.5 10^3/ul (0-0.8); ABS Neutrophils 6.2 10^3/ul (1.5-7.7); Eosinophil % 1.2 %; Lymphocyte % 14.3 %
[2019-04-18 15:33] LABS: Albumin 3.9 g/dL (3.2-5.2); Albumin/Globulin Ratio 1.2 (1-3); BUN/Creatinine Ratio 23.3 (8-20); Calcium 9.8 mg/dL (8.6-10.3); EGFR African American 80.9 (>60); EGFR Non-African American 66.9 (>60); Globulin 3.3 g/dL (2-4); Potassium 4.3 mmol/L (3.5-5.0); Total Bilirubin 0.8 mg/dL (0.2-1.0); Total Protein 7.2 g/dL (6.4-8.9)
[2019-04-18] MEDS ORDERED: Furosemide IV* 10 MG/ML VIAL (40 MG) IV SLOW PU ONE (16:53)
[2019-04-18] MEDS ORDERED: Albuterol HFA INHALER* 8 gm MDI INH PRN (17:31)
[2019-04-18] MEDS ORDERED: Mometasone/Formoter 200/5 MDI INH PRN (17:31)
[2019-04-18] MEDS: Atorvastatin* 20 MG TAB PO SCH (18:43)
[2019-04-18] MEDS ORDERED: Dextrose 50% VIAL 50 ml IV PUSH PRN (20:10)
[2019-04-18 20:52] LABS: TSH (Thyroid Stimulating Horm) 4.05 mcIU/mL (0.34-5.60)
[2019-04-18] MEDS: Insulin LISPRO* 1 UNITS UNIT SUBCUT SCH (20:54)
[2019-04-18] MEDS: Heparin VIAL(*) 5000 UNITS/ML VIAL (FIVE THOUSAND) SUBCUT SCH (21:01)
[2019-04-18] MEDS: Gabapentin CAP(*) 300 MG PO SCH (21:01)
[2019-04-18] MEDS: QUEtiapine TAB* 100 MG PO SCH (21:02)
[2019-04-18] MEDS: Lisinopril TAB* 5 MG PO SCH (21:02)
[2019-04-18] MEDS: Hydrocodone/Acetamin 10/325 MG 1 TAB PO PRN (21:02)
--- NOTE | 2019-04-19 03:47 | HP ---
CC: Dr. Moreno * HISTORY AND PHYSICAL: DATE OF ADMISSION: 04/18/19 PRIMARY CARE PROVIDER: Dr. Moreno. CHIEF COMPLAINT: Progressive shortness of breath over 2 months, left leg swelling, and rash on abdomen. HISTORY OF PRESENT ILLNESS: Ms. Sandoval is a 64-year-old female with history of rheumatoid arthritis, COPD, NISSA, type 2 diabetes, hypertension, and hypothyroidism, who presented to the emergency room with complaints of 2 months of progressive dyspnea, left leg swelling, and what she believes to be an abdominal rash. The patient states that in terms of her breathing, it has gotten progressively harder to breathe with exertion. Approximately, 3 months ago, she could walk about 100 feet per her family. Today, she is only able to walk 5 to 6 feet without having to stop. She does admit to cough, though this has been going on for several months. She also continuously brings up green to arguelles colored sputum. She thinks she may have had a fever the other day, but she did not check her temperature. In addition, over the last few days, she noticed that her left leg was swollen and she felt that she had a rash on her abdomen. She notes that when she was sitting on the toilet that her pannus touched her thighs and she states that that was abnormal. She also notes that she has right ankle pain, which is relatively new. She has not been able to lie flat, required sometime, however, now she tries and she is extremely short of breath. PAST MEDICAL HISTORY: 1. Rheumatoid arthritis. 2. NISSA. 3. COPD. 4. Type 2 diabetes. 5. Hypertension. 6. Hypothyroidism. 7. Monoclonal gammopathy, currently undergoing workup. PAST SURGICAL HISTORY: 1. Tonsillectomy. 2. Bilateral shoulder surgery for rotator cuff repair. 3. Three arthroscopic right knee surgeries. 4. Right knee lateral release. 5. Appendectomy. 6. Two . 7. Cholecystectomy. MEDICATIONS: 1. Metformin 500 mg p.o. b.i.d. 2. [place] 10/325 one tab p.o. q.6 hours p.r.n. pain. 3. Gabapentin 300 mg p.o. t.i.d. 4. Lexapro 20 mg p.o. daily. 5. Spironolactone/hydrochlorothiazide 25/25 mg 1 tablet p.o. daily. 6. Seroquel 300 mg p.o. q.h.s. 7. Naproxen 500 mg p.o. b.i.d. p.r.n. pain. 8. Levothyroxine 25 mcg p.o. daily. 9. Lipitor 20 mg p.o. q.h.s. 10. Omeprazole 20 mg p.o. daily. 11. Albuterol 2 puffs inhaled q.4 hours p.r.n. shortness of breath. 12. Symbicort 160/4.5 two puffs inhaled twice daily p.r.n. shortness of breath. ALLERGIES: LEVAQUIN and PERCOCET. FAMILY HISTORY: Mother is living, her health history is unknown. Father at the age of 83 of some type of cancer. SOCIAL HISTORY: The patient is a current smoker. She recently has cut down to 3 to 4 cigarettes per day, but for the bulk of the time, she smokes one-half pack per day. She did that for 30 years. She does not drink alcohol. 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 She is . She has 1 child. Her is her healthcare proxy. REVIEW OF SYSTEMS: The patient admits to possible fever few days ago. She also states her appetite has been very poor over the last 1 month. She denies any chest pain. She admits to the edema of the left leg. She admits to cough and shortness of breath as above. She has had intermittent episodes of nausea. No vomiting. She denies any abdominal pain. She states she fluctuates between constipation and diarrhea. She states that she occasionally has blood in her stool. No hematuria, no dysuria. No focal weakness. No sensory loss. No sudden changes in vision. She admits to occasional dysphagia. No joint pains or muscle pains out of the ordinary. She states she has a rash on her abdomen. Psychiatric: She admits to anxiety and depression. PHYSICAL EXAMINATION GENERAL: The patient is a well-developed, morbidly obese, middle-aged female, seen sitting up on the edge of the bed, appearing to be slightly tachypneic, but in no acute distress. VITAL SIGNS: Blood pressure is 169/94, pulse is 64, respirations 18, temperature is 97.2, O2 saturation is 93% on 2 L. HEENT: Pupils are equal. Extraocular muscles are intact. Oropharynx is clear and moist. There is no submandibular, cervical, or supraclavicular adenopathy. PULMONARY: Breath sounds are diminished in all lung whitten, they are clear. Lung sounds are markedly diminished at the bases. CARDIAC: Normal S1, S2. Regular rate and rhythm. I do not appreciate any murmurs. There is left greater than right 1+ lower extremity pitting edema. She has evidence of varicose veins bilaterally. ABDOMEN: Bowel sounds present. Abdomen is obese, soft, nontender, nondistended. There is marked pitting edema of the lower abdominal wall. MUSCULOSKELETAL: There is no cyanosis or clubbing of the digits. There is full active range of motion of all 4 extremities. NEURO: Cranial nerves II through XII are grossly intact. Sensation is intact to light touch throughout. Strength is 5/5 and symmetric in both upper and lower extremities bilaterally. PSYCH: The patient is alert. She is oriented x3. Affect appears appropriate. SKIN: Visible areas of skin are warm, dry, and without rash. DIAGNOSTIC STUDIES/LAB DATA: Labs, WBC 8.1, hemoglobin 13.1, hematocrit 39, platelets 246. D-dimer is 384. Sodium 141, potassium 4.3, chloride 105, CO2 of 31, BUN 20, creatinine 0.86, glucose 111, calcium 9.8. Bilirubin 0.8, AST 19 , ALT 26, alk phos 114. BNP is 327. Albumin is 3.9. Chest x-ray: Probable mild pulmonary vascular congestion and interstitial edema , superimposed on chronic obstructive pulmonary disease. ASSESSMENT AND PLAN: Ms. Sandoval is a 64-year-old morbidly obese female with history of rheumatoid arthritis, obstructive sleep apnea, chronic obstructive pulmonary disease, diabetes mellitus, and hypertension, who presented to the emergency room with 2 months of progressive shortness of breath, left lower extremity edema, and abdominal wall edema that the patient perceives as a rash. 1. Congestive heart failure. My suspicion at this time is the patient is in decompensated CHF. She does not have a history of echocardiogram in our system. This has been ordered for tomorrow. She received 80 mg of IV Lasix in the emergency room. We will continue on Lasix 40 mg IV twice daily to try to diurese her. Electrolytes will be replaced as needed. I will check a TSH to make sure her hypothyroidism is adequately treated. She has no complaints of chest pain and at this point, I do not believe she needs an ischemic workup unless her echo shows something significant. 2. COPD. I do not believe the patient's COPD is at play causing her shortness of breath. She will continue on her inhaled steroid and p.r.n. albuterol. 3. Type 2 diabetes. I am holding the patient's metformin and we will place her on fingersticks a.c. and h.s. with lispro sliding scale coverage. I will add on hemoglobin A1c. 4. Hypertension. The patient did not take her antihypertensives this morning. Her blood pressure is markedly elevated at this time. I am going to discontinue her hydrochlorothiazide/spironolactone. Continue just the spironolactone portion of that and in addition, start lisinopril 5 mg q.h.s. We will monitor her blood pressures for improvement. She likely will need further adjustments in her antihypertensive regimen. 5. Hypothyroidism. As above, I am going to check a TSH. She will, for now, be continued on her usual dose of Synthroid. 6. Depression and anxiety. Continue Lexapro and Seroquel. 7. NISSA. The patient uses a CPAP at home, however, she states that her machine broke recently. I will order a CPAP while she is in the hospital. 8. DVT prophylaxis: According to the Adult Thrombosis Prophylaxis Risk Factor Assessment Guide, the patient has a total risk factor score of 6, making her the highest risk. She will be started on heparin 5000 units subcutaneous q.8 hours as DVT prophylaxis. 9. Code status is full. TIME SPENT: Sixty-five minutes was spent admitting this patient. [id number]/CPS #: [id number] CARLOS MANUEL
[2019-04-19] MEDS: Heparin VIAL(*) 5000 UNITS/ML VIAL (FIVE THOUSAND) SUBCUT SCH ×3 (05:10→21:58)
[2019-04-19] MEDS: Hydrocodone/Acetamin 10/325 MG 1 TAB PO PRN ×4 (05:10→23:53)
[2019-04-19] MEDS: Levothyroxine TAB* 25 MCG TAB PO SCH (05:11)
[2019-04-19 07:02] LABS: BUN/Creatinine Ratio 21.6 (8-20); EGFR African American 78.8 (>60); EGFR Non-African American 65.1 (>60); Potassium 3.6 mmol/L (3.5-5.0)
[2019-04-19] MEDS ORDERED: Perflutren Lipid Microsphere* 3 ML VIAL ONE (07:56)
[2019-04-19] MEDS: Insulin LISPRO* 1 UNITS UNIT SUBCUT SCH ×4 (08:00→21:58)
[2019-04-19] MEDS: Gabapentin CAP(*) 300 MG PO SCH ×3 (08:52→21:55)
[2019-04-19] MEDS: Escitalopram * 20 MG TABLET PO SCH (08:52)
[2019-04-19] MEDS: Furosemide IV* 10 MG/ML VIAL (40 MG) IV SLOW PU SCH ×2 (08:52→17:38)
[2019-04-19] MEDS: Spironolactone TAB* 25 MG PO SCH (08:52)
[2019-04-19] MEDS: Pantoprazole TAB * 40 MG TAB PO SCH (08:52)
--- NOTE | 2019-04-19 11:04 | ECHO ---
*[facility]* [place] [address] Fax #: [phone] Transthoracic Echocardiogram Patient: Claudia Sandoval : 1955 Study Date: 04/19/2019 Age: 64 Gender: F HR: 60 bpm Height: 65 in /165.1 cm BSA: 2.35 m^2 Weight: 299.4 lb /136.1 kg BMI: 49.9 kg/m^2 *Airplane Rental Clerk: * Hayley Guidry *Referring Physician: * Palma SantizoReading Physician: * Daniel Donohue MD Indications: Congestive Heart Failure. History: Risk factors: COPD, edema. Hypertension. Diabetes mellitus. Conclusions Summary: - Left ventricle: Systolic function is normal. The estimated ejection fraction is 55-60%. Although no diagnostic regional wall motion abnormality is identified, this possibility cannot be completely excluded on the basis of this study. - Mitral valve: There is trace to mild regurgitation. - Aortic valve: There is no evidence of stenosis. - Tricuspid valve: There is no significant regurgitation. - Pulmonary arteries: Systolic pressure can not be accurately estimated. - Study data: No prior study is available for comparison. Study data: Transthoracic echocardiogram. Procedure: Transthoracic echocardiography was performed. Image quality was suboptimal. The study was technically limited due to poor acoustic window availability, restricted patient mobility, body habitus, and COPD. Intravenous Definity , 2 mlswas administered. Complete 2D, spectral Doppler, and color flow Doppler. Location: Bedside. Patient status: Inpatient. Patient room number: 448-2. No prior study is available for comparison. Rhythm: Normal sinus rhythm. Findings Left ventricle: The cavity size is normal. Wall thickness is normal. Systolic function is normal. The estimated ejection fraction is 55-60%. Although no diagnostic regional wall motion abnormality is identified, this possibility cannot be completely excluded on the basis of this study. Left ventricular diastolic function parameters are normal. Right ventricle: Not well visualized. Left atrium: The atrium is normal in size. Right atrium: Not well visualized. Mitral valve: The leaflets are normal thickness. There is no evidence of stenosis. There is trace to mild regurgitation. Aortic valve: Not well visualized. There is no evidence of stenosis. There is no significant regurgitation. Tricuspid valve: Not well visualized. There is no evidence of stenosis. There is no significant regurgitation. Pulmonic valve: Not well visualized. There is no evidence of stenosis. There is no significant regurgitation. Pericardium: There is no significant pericardial effusion. Pulmonary arteries: Systolic pressure can not be accurately estimated. Systemic veins: Inferior vena cava: The vessel is normal in size. There is (>= 50%) respiratory change in the IVC dimension. Pulmonary veins: Not well visualized. The Pulmonary veins appear normal. Measurements Left ventricle Value Ref Right atrium Value Ref GUILLERMO, LAX (H) 5.7 cm 3.8 - SI dim, ES (H) 5.8 cm 3.4 - 5.3 5.2 ML dim, ES, A4C (H) 5.3 cm 2.6 - 4.4 ESD, LAX (H) 4.2 cm 2.2 - SI dim, ES, A4C (H) 5.8 cm 3.4 - 5.3 3.5 FS, LAX 27 % Aortic valve Value Ref PW, ED, LAX (H) 1.3 cm 0.6 - Peak v, S 1.46 m/sec --------- 0.9 VTI, S 34.9 cm --------- FS 27 % Mean grad, S 5.0 mm Hg --------- Mid-wall FS 12 % -------- Peak grad, S 9.0 mm Hg --------- PW, ED (H) 1.3 cm 0.6 - IVORY, VTI 2.81 cm^2 --------- 0.9 IVORY, Vmax 2.54 cm^2 --------- PW/ID, ED 0.22 -------- Qs 5 L/min -------- Mitral valve Value Ref E', lat jani, TDI (L) 7.7 cm/sec >=10.0 Peak E 0.98 m/sec --- ------ E/e', lat jani, TDI 13 -------- Peak A 0.91 m/sec ------ --- E', med jani, TDI 8.7 cm/sec >=7.0 Decel time 238 ms --- ------ E/e', med jani, TDI 11 -------- Peak grad, D 3.8 mm Hg ------ --- E', avg, TDI 8.2 cm/sec -------- Peak E/A ratio 1.1 ------ --- E/e', avg, TDI 12 <=14 Pulmonic valve Value Ref LVOT Value Ref Peak v, S 1.09 m/sec --------- Diam, S 2.10 cm -------- Peak grad, S 5.0 mm Hg --------- Area 3.5 cm^2 -------- Peak lexx, S 1.07 m/sec -------- Aortic root Value Ref Mean grad, S 3 mm Hg -------- Root diam 3.1 cm <4.4 SV 98 ml -------- Ascending aorta Value Ref Ventricular septum Value Ref AAo AP diam, S 3.3 cm --------- IVS, ED (H) 1.4 cm 0.6 - 0.9 Inferior vena cava Value Ref Diam 2.4 cm --------- Right ventricle Value Ref GUILLERMO, LAX 3.4 cm -------- GUILLERMO minor ax, A4C (H) 4.4 cm 1.9 - mid 3.5 Left atrium Value Ref ML dim, A4C 4.3 cm -------- SI dim, A4C 5.9 cm -------- Vol/bsa, ES, 1-p 20 ml/m^2 11 - 40 A4C Vol/bsa, ES, A/L 20 ml/m^2 16 - 34 Legend: (L) and (H) radha values outside specified reference range. Prepared and electronically signed by Daniel Donohue MD 04/19/2019 11:04
--- NOTE | 2019-04-19 17:19 | PN ---
Subjective Date of Service: 04/19/19 Interval History: Pt is feeling very poorly today. She states she feels weak and is still very short of breath. She notes that the L leg swelling a better today. She notes the abdominal wall edema is slightly softer today. Objective Active Medications: Hydrocodone Bitart/Acetaminophen ([place] 10/325 (Nf)) 1 tab PO Q6HR PRN PRN Reason: PAIN - MODERATE Last Admin: 04/19/19 11:45 Dose: 1 tab Albuterol (Ventolin Hfa Inhaler*) 2 puff INH Q4H PRN PRN Reason: SHORTNESS OF BREATH Atorvastatin Calcium (Lipitor*) 20 mg PO QPM [facility] Last Admin: 04/18/19 18:43 Dose: 20 mg Dextrose (Dextrose 50% Vial 50 Ml*) 25 ml IV PUSH .FOR FS < 60 - SS PRN PRN Reason: FS < 60 Escitalopram Oxalate (Lexapro *) 20 mg PO DAILY [facility] Last Admin: 04/19/19 08:52 Dose: 20 mg Furosemide (Lasix Iv*) 40 mg IV SLOW PU 0800,1700 [facility] Last Admin: 04/19/19 08:52 Dose: 40 mg Gabapentin (Neurontin Cap(*)) 300 mg PO TID [facility] Last Admin: 04/19/19 16:01 Dose: 300 mg Heparin Sodium (Porcine) (Heparin Vial(*)) 5,000 units SUBCUT Q8HR [facility] Last Admin: 04/19/19 16:01 Dose: 5,000 units Insulin Human Lispro (Humalog*) 0 units SUBCUT ACHS [facility]; Protocol Last Admin: 04/19/19 17:08 Dose: Not Given Levothyroxine Sodium (Synthroid Tab*) 25 mcg PO QAM@0600 [facility] Last Admin: 04/19/19 05:11 Dose: 25 mcg Lisinopril (Prinivil Tab*) 5 mg PO BEDTIME [facility] Last Admin: 04/18/19 21:02 Dose: 5 mg Mometasone Furoate/Formoterol Fumar (Dulera 200/5 Mdi*) 2 puff INH BID PRN; Protocol PRN Reason: WHEEZING Nystatin (Nystatin Cream*) 1 applic TOPICAL TID [facility] Pantoprazole Sodium (Protonix Tab*) 40 mg PO DAILY [facility] Last Admin: 04/19/19 08:52 Dose: 40 mg Quetiapine Fumarate (Seroquel Tab*) 300 mg PO BEDTIME [facility] Last Admin: 04/18/19 21:02 Dose: 300 mg Spironolactone (Aldactone Tab*) 25 mg PO DAILY [facility] Last Admin: 04/19/19 08:52 Dose: 25 mg Vital Signs - 8 hr 04/19/19 04/19/19 04/19/19 11:15 11:45 14:32 Temperature 98.3 F Pulse Rate 66 Respiratory 20 20 18 Rate Blood Pressure 135/53 (mmHg) O2 Sat by Pulse 93 Oximetry 04/19/19 04/19/19 15:15 16:01 Temperature 98.3 F Pulse Rate 58 Respiratory 16 18 Rate Blood Pressure 137/65 (mmHg) O2 Sat by Pulse 91 Oximetry Oxygen Devices in Use Now: Nasal Cannula Appearance: Middle aged morbidly obese female sitting up in a recliner, NAD Eyes: No Scleral Icterus Ears/Nose/Mouth/Throat: Mucous Membranes Moist Respiratory: Symmetrical Chest Expansion and Respiratory Effort, Clear to Auscultation - diminished breath sounds throughout, breath sounds at the bases are coarser than the rest of the lung whitten Cardiovascular: NL Sounds; No Murmurs; No JVD, RRR, - - trace LE edema Abdominal: NL Sounds; No Tenderness; No Distention, - - significant abdominal wall edema Extremities: No Clubbing, Cyanosis Skin: No Nodules or Sclerosis Neurological: Alert and Oriented x 3 Result Diagrams: 04/18/19 14:56 04/19/19 06:11 Assess/Plan/Problems-Billing Ms Sandoval is a 64 yo F who has a h/o NISSA who has not used her CPAP due to it being broken for about the last 1 year, COPD, RA, type II DM, HTN and hypothyroidism who presented to the ER with c/o progressive SOB over the last 2 months. - Patient Problems (1) Diastolic CHF Current Visit: Yes Status: Acute Code(s): I50.30 - UNSPECIFIED DIASTOLIC ( CONGESTIVE) HEART FAILURE SNOMED Code(s): 612829373 Comment: I suspect the patient's SOB is secondary to diastolic CHF exacerbation. She appears fluid overloaded (LE edema/edema of abdominal wall). I question if the CHF may have been exacerbated by untreated NISSA for the last 1 year. Will continue lasix 40mg IV BID, strict I/Os, daily weights. Recheck BMP tomorrow. (2) COPD (chronic obstructive pulmonary disease) Current Visit: Yes Status: Acute Code(s): J44.9 - CHRONIC OBSTRUCTIVE PULMONARY DISEASE, UNSPECIFIED SNOMED Code(s): 57281204 Comment: Continue supplemental O2. I do not think she is in exacerbation. THere is no wheezing. Continue inhaled steroid, prn albuterol. (3) NISSA (obstructive sleep apnea) Current Visit: Yes Status: Acute Code(s): G47.33 - OBSTRUCTIVE SLEEP APNEA ( ADULT) (PEDIATRIC) SNOMED Code(s): 02617688 Comment: Continue CPAP. Case management is working on getting a functional CPAP for home. (4) HTN (hypertension) Current Visit: Yes Status: Acute Code(s): I10 - ESSENTIAL (PRIMARY) HYPERTENSION SNOMED Code(s): 87841960 Comment: BP is under good control. Continue spironolactone and lisinopril. Will need to watch for hyperkalemia with this combination. (5) Type II diabetes mellitus Current Visit: Yes Status: Acute Comment: Sugars are under good control off her metformin. Continue lispro sliding scale. (6) Hypothyroidism Current Visit: Yes Status: Acute Code(s): E03.9 - HYPOTHYROIDISM, UNSPECIFIED SNOMED Code(s): 49743716 Comment: TSH is in good range. Continue current dose of synthroid. (7) DVT prophylaxis Current Visit: Yes Status: Acute Code(s): Z29.9 - ENCOUNTER FOR PROPHYLACTIC MEASURES, UNSPECIFIED SNOMED Code(s): 248723458 Comment: SQ heparin (8) Full code status Current Visit: Yes Status: Acute Code(s): Z78.9 - OTHER SPECIFIED HEALTH STATUS SNOMED Code(s): 730240239
[2019-04-19] MEDS: Atorvastatin* 20 MG TAB PO SCH (17:38)
[2019-04-19] MEDS: QUEtiapine TAB* 100 MG PO SCH (21:56)
[2019-04-19] MEDS: Lisinopril TAB* 5 MG PO SCH (21:57)
[2019-04-19] MEDS: Nystatin CREAM* 15 GM TUBE TOPICAL SCH (22:06)
[2019-04-20] MEDS ORDERED: Melatonin 3 MG TAB PO PRN (01:21)
[2019-04-20] MEDS: Levothyroxine TAB* 25 MCG TAB PO SCH (06:10)
[2019-04-20] MEDS: Heparin VIAL(*) 5000 UNITS/ML VIAL (FIVE THOUSAND) SUBCUT SCH ×3 (06:11→22:22)
[2019-04-20 07:06] LABS: BUN/Creatinine Ratio 21.1 (8-20); Calcium 10.3 mg/dL (8.6-10.3); EGFR African American 58.4 (>60); EGFR Non-African American 48.3 (>60); Potassium 3.9 mmol/L (3.5-5.0)
[2019-04-20] MEDS: Insulin LISPRO* 1 UNITS UNIT SUBCUT SCH ×4 (07:50→22:21)
[2019-04-20] MEDS: Hydrocodone/Acetamin 10/325 MG 1 TAB PO PRN ×2 (08:44→17:05)
[2019-04-20] MEDS: Furosemide IV* 10 MG/ML VIAL (40 MG) IV SLOW PU SCH (08:44)
[2019-04-20] MEDS: Escitalopram * 20 MG TABLET PO SCH (08:44)
[2019-04-20] MEDS: Spironolactone TAB* 25 MG PO SCH (08:44)
[2019-04-20] MEDS: Gabapentin CAP(*) 300 MG PO SCH ×3 (08:44→22:21)
[2019-04-20] MEDS: Pantoprazole TAB * 40 MG TAB PO SCH (08:44)
[2019-04-20] MEDS: Nystatin CREAM* 15 GM TUBE TOPICAL SCH ×3 (08:44→22:25)
--- NOTE | 2019-04-20 14:08 | PN ---
Subjective Date of Service: 04/20/19 Interval History: patient seen today, she continue to have shortness of breath. she report improvement in her symptoms but continue to be dyspneic. Currently on IV lasix. Available studies reviewed. her CXR Consistent with pulmonary congestion and Echo consistent with acute diastollic heart failure. However, her D-dimer is positive and given her acute dyspnea I am concerned about PE. Us of leg negative for DVT but does not rule out PE. Will send patient for CTA to rule out PE Past Medical History: Unchanged from Admission Objective Active Medications: Hydrocodone Bitart/Acetaminophen ([place] 10/325 (Nf)) 1 tab PO Q6HR PRN PRN Reason: PAIN - MODERATE Last Admin: 04/20/19 08:44 Dose: 1 tab Albuterol (Ventolin Hfa Inhaler*) 2 puff INH Q4H PRN PRN Reason: SHORTNESS OF BREATH Atorvastatin Calcium (Lipitor*) 20 mg PO QPM [facility] Last Admin: 04/19/19 17:38 Dose: 20 mg Dextrose (Dextrose 50% Vial 50 Ml*) 25 ml IV PUSH .FOR FS < 60 - SS PRN PRN Reason: FS < 60 Escitalopram Oxalate (Lexapro *) 20 mg PO DAILY [facility] Last Admin: 04/20/19 08:44 Dose: 20 mg Gabapentin (Neurontin Cap(*)) 300 mg PO TID [facility] Last Admin: 04/20/19 08:44 Dose: 300 mg Heparin Sodium (Porcine) (Heparin Vial(*)) 5,000 units SUBCUT Q8HR [facility] Last Admin: 04/20/19 06:11 Dose: 5,000 units Insulin Human Lispro (Humalog*) 0 units SUBCUT ACHS [facility]; Protocol Last Admin: 04/20/19 12:31 Dose: 2 units Levothyroxine Sodium (Synthroid Tab*) 25 mcg PO QAM@0600 [facility] Last Admin: 04/20/19 06:10 Dose: 25 mcg Melatonin (Melatonin) 3 mg PO BEDTIME PRN PRN Reason: INSOMNIA Mometasone Furoate/Formoterol Fumar (Dulera 200/5 Mdi*) 2 puff INH BID PRN; Protocol PRN Reason: WHEEZING Nystatin (Nystatin Cream*) 1 applic TOPICAL TID [facility] Last Admin: 04/20/19 08:44 Dose: 1 applic Pantoprazole Sodium (Protonix Tab*) 40 mg PO DAILY [facility] Last Admin: 04/20/19 08:44 Dose: 40 mg Quetiapine Fumarate (Seroquel Tab*) 300 mg PO BEDTIME [facility] Last Admin: 04/19/19 21:56 Dose: 300 mg Vital Signs - 8 hr 04/20/19 04/20/19 04/20/19 07:49 07:50 08:44 Temperature 98.3 F Pulse Rate 65 Respiratory 20 20 20 Rate Blood Pressure 115/47 (mmHg) O2 Sat by Pulse 92 Oximetry 04/20/19 04/20/19 04/20/19 11:11 11:12 11:15 Temperature 97.7 F Pulse Rate 66 Respiratory 18 18 20 Rate Blood Pressure 117/45 (mmHg) O2 Sat by Pulse 99 Oximetry 04/20/19 11:35 Temperature Pulse Rate Respiratory Rate Blood Pressure (mmHg) O2 Sat by Pulse 99 Oximetry Oxygen Devices in Use Now: Nasal Cannula Appearance: awake, alert. no distress. in chair report no chest pain. still have SOB Eyes: No Scleral Icterus, - - EOMI Ears/Nose/Mouth/Throat: NL Teeth, Lips, Gums, Mucous Membranes Moist Neck: NL Appearance and Movements; NL JVP, Trachea Midline Respiratory: - - diminished air flow bilateral, distand breath sounds Cardiovascular: RRR, - - +1 edema Abdominal: NL Sounds; No Tenderness; No Distention, - - Obese Neurological: Alert and Oriented x 3, NL Muscle Strength and Tone Result Diagrams: 04/18/19 14:56 04/20/19 06:21 Assess/Plan/Problems-Billing Ms Sandoval is a 64 yo F who has a h/o NISSA who has not used her CPAP due to it being broken for about the last 1 year, COPD, RA, type II DM, HTN and hypothyroidism who presented to the ER with c/o progressive SOB over the last 2 months. - Patient Problems (1) COPD (chronic obstructive pulmonary disease) Current Visit: Yes Status: Acute Code(s): J44.9 - CHRONIC OBSTRUCTIVE PULMONARY DISEASE, UNSPECIFIED SNOMED Code(s): 35696198 Comment: - Continue supplemental O2. - Continue inhaled steroid, prn albuterol. (2) Diastolic CHF Current Visit: Yes Status: Acute Code(s): I50.30 - UNSPECIFIED DIASTOLIC ( CONGESTIVE) HEART FAILURE SNOMED Code(s): 845883727 Comment: - She clearly does have evidence of heart failure both clinically and radiographically. - Currently on IV lasix 40 mg IV bid and she is starting to devellop renal azotemia. - I am going to hold off on the nephrotoxic drug to allow me to introduce IV for her CTA to rule out PE - Will consider resuming lasix po in am. (will keep aldactone and lisinopril on hold today as I am planing to do CTA to rule out PE given her d-Dimers) (3) HTN (hypertension) Current Visit: Yes Status: Acute Code(s): I10 - ESSENTIAL (PRIMARY) HYPERTENSION SNOMED Code(s): 16915901 Comment: - BP is under good control. will hold spironolactone and lisinopril due to renal azotemia and the plan to give IV dye for her CTA of chest. (4) Hypothyroidism Current Visit: Yes Status: Acute Code(s): E03.9 - HYPOTHYROIDISM, UNSPECIFIED SNOMED Code(s): 85469066 Comment: TSH is in good range. Continue current dose of synthroid 25 mcg daily. (5) NISSA (obstructive sleep apnea) Current Visit: Yes Status: Acute Code(s): G47.33 - OBSTRUCTIVE SLEEP APNEA ( ADULT) (PEDIATRIC) SNOMED Code(s): 54296171 Comment: Continue CPAP. Case management is working on getting a functional CPAP for home. (6) Type II diabetes mellitus Current Visit: Yes Status: Acute Comment: - Sugars are under good control off her metformin. Continue lispro sliding scale. (7) DVT prophylaxis Current Visit: Yes Status: Acute Code(s): Z29.9 - ENCOUNTER FOR PROPHYLACTIC MEASURES, UNSPECIFIED SNOMED Code(s): 093793687 Comment: SQ heparin
[2019-04-20] MEDS ORDERED: Iodixanol* (CONTRAST) 320 MG/ML 100 ML SDV IV ONE (14:18)
[2019-04-20] MEDS ORDERED: Nicotine* 4MG (FRUIT FLAVOR) GUM PO PRN (16:11)
[2019-04-20] MEDS: Atorvastatin* 20 MG TAB PO SCH (17:05)
[2019-04-20] MEDS: QUEtiapine TAB* 100 MG PO SCH (22:21)
[2019-04-21] MEDS: Hydrocodone/Acetamin 10/325 MG 1 TAB PO PRN ×3 (02:56→17:57)
[2019-04-21 05:02] LABS: ABS Eosinophils 0.2 10^3/ul (0-0.6); ABS Lymphocytes 1.3 10^3/ul (1.0-4.8); ABS Monocytes 0.6 10^3/ul (0-0.8); ABS Neutrophils 6.2 10^3/ul (1.5-7.7); Eosinophil % 1.9 %; Hematocrit 43 % (35-47); Hemoglobin 13.9 g/dL (12.0-16.0); Lymphocyte % 15.6 %; Mean Corpuscular HGB Conc 33 g/dL (31-36); Mean Corpuscular Hemoglobin 31 pg (27-31); Mean Corpuscular Volume 95 fL (80-97); Nucleated Red Blood Cells % 0.1; Platelet Count 272 10^3/uL (150-450); Red Blood Count 4.51 10^6 /uL (3.70-4.87); Red Cell Distribution Width 17 % (10-15); White Blood Count 8.3 10^3/uL (3.5-10.8)
[2019-04-21 05:16] LABS: Calcium 10.4 mg/dL (8.6-10.3); Magnesium 2.1 mg/dL (1.9-2.7); Potassium 4.4 mmol/L (3.5-5.0)
[2019-04-21 05:22] LABS: BUN/Creatinine Ratio 33.3 (8-20); EGFR African American 66.4 (>60); EGFR Non-African American 54.9 (>60); Phosphorus 4.1 mg/dL (2.5-5.0)
[2019-04-21] MEDS: Levothyroxine TAB* 25 MCG TAB PO SCH (06:14)
[2019-04-21] MEDS: Heparin VIAL(*) 5000 UNITS/ML VIAL (FIVE THOUSAND) SUBCUT SCH ×3 (06:15→21:09)
[2019-04-21] MEDS: Insulin LISPRO* 1 UNITS UNIT SUBCUT SCH ×4 (08:19→20:10)
[2019-04-21] MEDS: Gabapentin CAP(*) 300 MG PO SCH ×3 (08:24→21:08)
[2019-04-21] MEDS: Furosemide TAB* 40 MG PO SCH (08:24)
[2019-04-21] MEDS: Pantoprazole TAB * 40 MG TAB PO SCH (08:24)
[2019-04-21] MEDS: Escitalopram * 20 MG TABLET PO SCH (08:25)
[2019-04-21] MEDS: Nystatin CREAM* 15 GM TUBE TOPICAL SCH ×3 (09:16→21:11)
--- NOTE | 2019-04-21 10:31 | PN ---
Subjective Date of Service: 04/21/19 Interval History: Patient seen today, doing well. No fever or chills. Feeling better. on nasal canula 4 liters and CPAP poor compliance at night. CTA negative for PE.. transitioned her lasix to po. will request PT and OT to evaluate for possible discharge in am Past Medical History: Unchanged from Admission Objective Active Medications: Hydrocodone Bitart/Acetaminophen ([place] 10/325 (Nf)) 1 tab PO Q6HR PRN PRN Reason: PAIN - MODERATE Last Admin: 04/21/19 09:16 Dose: 1 tab Albuterol (Ventolin Hfa Inhaler*) 2 puff INH Q4H PRN PRN Reason: SHORTNESS OF BREATH Atorvastatin Calcium (Lipitor*) 20 mg PO QPM [facility] Last Admin: 04/20/19 17:05 Dose: 20 mg Dextrose (Dextrose 50% Vial 50 Ml*) 25 ml IV PUSH .FOR FS < 60 - SS PRN PRN Reason: FS < 60 Escitalopram Oxalate (Lexapro *) 20 mg PO DAILY [facility] Last Admin: 04/21/19 08:25 Dose: 20 mg Furosemide (Lasix Tab*) 40 mg PO DAILY [facility] Last Admin: 04/21/19 08:24 Dose: 40 mg Furosemide (Lasix Tab*) 20 mg PO 1700 [facility] Gabapentin (Neurontin Cap(*)) 300 mg PO TID [facility] Last Admin: 04/21/19 08:24 Dose: 300 mg Heparin Sodium (Porcine) (Heparin Vial(*)) 5,000 units SUBCUT Q8HR [facility] Last Admin: 04/21/19 06:15 Dose: 5,000 units Insulin Human Lispro (Humalog*) 0 units SUBCUT ACHS [facility]; Protocol Last Admin: 04/21/19 08:19 Dose: Not Given Levothyroxine Sodium (Synthroid Tab*) 25 mcg PO QAM@0600 [facility] Last Admin: 04/21/19 06:14 Dose: 25 mcg Melatonin (Melatonin) 3 mg PO BEDTIME PRN PRN Reason: INSOMNIA Last Admin: 04/20/19 22:21 Dose: 3 mg Mometasone Furoate/Formoterol Fumar (Dulera 200/5 Mdi*) 2 puff INH BID PRN; Protocol PRN Reason: WHEEZING Nicotine Polacrilex (Nicotine Gum*) 4 mg PO Q2H PRN PRN Reason: CRAVING Nystatin (Nystatin Cream*) 1 applic TOPICAL TID [facility] Last Admin: 04/21/19 09:16 Dose: 1 applic Pantoprazole Sodium (Protonix Tab*) 40 mg PO DAILY [facility] Last Admin: 04/21/19 08:24 Dose: 40 mg Quetiapine Fumarate (Seroquel Tab*) 300 mg PO BEDTIME [facility] Last Admin: 04/20/19 22:21 Dose: 300 mg Vital Signs - 8 hr 04/21/19 04/21/19 04/21/19 02:48 02:56 06:15 Temperature 97.4 F Pulse Rate 71 Respiratory 16 16 16 Rate Blood Pressure 108/54 (mmHg) O2 Sat by Pulse 94 Oximetry 04/21/19 04/21/19 04/21/19 08:21 08:24 09:16 Temperature 97.4 F Pulse Rate 66 Respiratory 18 18 18 Rate Blood Pressure 108/54 (mmHg) O2 Sat by Pulse 95 Oximetry Oxygen Devices in Use Now: Nasal Cannula Appearance: awake, alert no fever or chills. no acute distress Eyes: No Scleral Icterus, - - EOMI Ears/Nose/Mouth/Throat: NL Teeth, Lips, Gums, Mucous Membranes Moist Neck: NL Appearance and Movements; NL JVP, Trachea Midline Respiratory: Symmetrical Chest Expansion and Respiratory Effort, - - fine expiratory wheezing Cardiovascular: NL Sounds; No Murmurs; No JVD Abdominal: NL Sounds; No Tenderness; No Distention Extremities: - Neurological: Alert and Oriented x 3 Result Diagrams: 04/21/19 04:52 04/21/19 04:52 Assess/Plan/Problems-Billing Ms Sandoval is a 64 yo F who has a h/o NISSA who has not used her CPAP due to it being broken for about the last 1 year, COPD, RA, type II DM, HTN and hypothyroidism who presented to the ER with c/o progressive SOB over the last 2 months. - Patient Problems (1) COPD (chronic obstructive pulmonary disease) Current Visit: Yes Status: Acute Code(s): J44.9 - CHRONIC OBSTRUCTIVE PULMONARY DISEASE, UNSPECIFIED SNOMED Code(s): 12625853 Comment: - Continue supplemental O2. - Continue inhaled steroid, prn albuterol. (2) Diastolic CHF Current Visit: Yes Status: Acute Code(s): I50.30 - UNSPECIFIED DIASTOLIC ( CONGESTIVE) HEART FAILURE SNOMED Code(s): 465927250 Comment: - Acute diastollic - She clearly does have evidence of heart failure both clinically and radiographically. - s/p IV lasix 40 mg IV bid transitioned to PO lasix 40 mg am and 20 mg pm. - I am going to keep "nephrotoxic drug" on hold to allow s/p CTA to rule out PE (negative). Will resume one at a time starting tomorrow (aldactone/lisinopril) (3) HTN (hypertension) Current Visit: Yes Status: Acute Code(s): I10 - ESSENTIAL (PRIMARY) HYPERTENSION SNOMED Code(s): 10307119 Comment: - BP is under good control. will hold spironolactone and lisinopril due to renal azotemia (4) Hypothyroidism Current Visit: Yes Status: Acute Code(s): E03.9 - HYPOTHYROIDISM, UNSPECIFIED SNOMED Code(s): 13936465 Comment: TSH is in good range. Continue current dose of synthroid 25 mcg daily. (5) NISSA (obstructive sleep apnea) Current Visit: Yes Status: Acute Code(s): G47.33 - OBSTRUCTIVE SLEEP APNEA ( ADULT) (PEDIATRIC) SNOMED Code(s): 63977865 Comment: - Continue CPAP. Case management is working on getting a functional CPAP for home. - Patient is trying to tolerate even inpatient. She only wore it 15 minutes or so yesterday (6) Type II diabetes mellitus Current Visit: Yes Status: Acute Comment: - Sugars are under good control off her metformin. Continue lispro sliding scale. (7) DVT prophylaxis Current Visit: Yes Status: Acute Code(s): Z29.9 - ENCOUNTER FOR PROPHYLACTIC MEASURES, UNSPECIFIED SNOMED Code(s): 708990160 Comment: SQ heparin
[2019-04-21] MEDS ORDERED: Furosemide TAB* 20 MG PO SCH (17:00)
[2019-04-21] MEDS: Atorvastatin* 20 MG TAB PO SCH (17:53)
[2019-04-21] MEDS: QUEtiapine TAB* 100 MG PO SCH (21:08)
[2019-04-22] MEDS: Heparin VIAL(*) 5000 UNITS/ML VIAL (FIVE THOUSAND) SUBCUT SCH ×2 (04:55→12:59)
[2019-04-22] MEDS: Levothyroxine TAB* 25 MCG TAB PO SCH (04:55)
[2019-04-22 07:41] LABS: ABS Basophils 0.1 10^3/ul (0-0.2); ABS Eosinophils 0.2 10^3/ul (0-0.6); ABS Lymphocytes 1.1 10^3/ul (1.0-4.8); ABS Monocytes 0.7 10^3/ul (0-0.8); ABS Neutrophils 7.2 10^3/ul (1.5-7.7); Eosinophil % 1.8 %; Hematocrit 44 % (35-47); Hemoglobin 14.5 g/dL (12.0-16.0); Lymphocyte % 11.9 %; Mean Corpuscular HGB Conc 33 g/dL (31-36); Mean Corpuscular Hemoglobin 31 pg (27-31); Mean Corpuscular Volume 95 fL (80-97); Mean Platelet Volume 8.2 fL (7.4-10.4); Platelet Count 233 10^3/uL (150-450); Red Blood Count 4.61 10^6 /uL (3.70-4.87); Red Cell Distribution Width 16 % (10-15); White Blood Count 9.3 10^3/uL (3.5-10.8)
[2019-04-22 08:02] LABS: BUN/Creatinine Ratio 31.9 (8-20); Calcium 10.5 mg/dL (8.6-10.3); EGFR African American 75.8 (>60); EGFR Non-African American 62.6 (>60); Phosphorus 2.5 mg/dL (2.5-5.0); Potassium 4.5 mmol/L (3.5-5.0)
[2019-04-22] MEDS: Insulin LISPRO* 1 UNITS UNIT SUBCUT SCH ×2 (08:34→11:50)
[2019-04-22] MEDS: Gabapentin CAP(*) 300 MG PO SCH ×2 (08:39→12:58)
[2019-04-22] MEDS: Nystatin CREAM* 15 GM TUBE TOPICAL SCH ×2 (08:41→13:01)
[2019-04-22] MEDS: Pantoprazole TAB * 40 MG TAB PO SCH (08:42)
[2019-04-22] MEDS: Escitalopram * 20 MG TABLET PO SCH (08:42)
[2019-04-22] MEDS: Furosemide TAB* 40 MG PO SCH (08:42)
[2019-04-22] MEDS: Hydrocodone/Acetamin 10/325 MG 1 TAB PO PRN (08:42)
[2019-04-22] MEDS ORDERED: Docusate CAP* 100 MG PO PRN (13:16)
--- NOTE | 2019-04-22 15:43 | PN ---
Subjective Date of Service: 04/22/19 Interval History: Patient seen today, in chair, depressed and complaining of severe arthritic pain. NO acute events. Om 4 liters nasal canula. Still having difficulty with the CPAP despite trying her nasal turbinate mask. Past Medical History: Unchanged from Admission Objective Active Medications: Hydrocodone Bitart/Acetaminophen ([place] 10/325 (Nf)) 1 tab PO Q6HR PRN PRN Reason: PAIN - MODERATE Last Admin: 04/22/19 08:42 Dose: 1 tab Albuterol (Ventolin Hfa Inhaler*) 2 puff INH Q4H PRN PRN Reason: SHORTNESS OF BREATH Atorvastatin Calcium (Lipitor*) 20 mg PO QPM [facility] Last Admin: 04/21/19 17:53 Dose: 20 mg Dextrose (Dextrose 50% Vial 50 Ml*) 25 ml IV PUSH .FOR FS < 60 - SS PRN PRN Reason: FS < 60 Docusate Sodium (Colace Cap*) 100 mg PO BID PRN PRN Reason: CONSTIPATION Last Admin: 04/22/19 13:44 Dose: 100 mg Escitalopram Oxalate (Lexapro *) 20 mg PO DAILY [facility] Last Admin: 04/22/19 08:42 Dose: 20 mg Furosemide (Lasix Tab*) 40 mg PO DAILY [facility] Last Admin: 04/22/19 08:42 Dose: 40 mg Furosemide (Lasix Tab*) 20 mg PO 1700 [facility] Last Admin: 04/21/19 17:53 Dose: 20 mg Gabapentin (Neurontin Cap(*)) 300 mg PO TID [facility] Last Admin: 04/22/19 12:58 Dose: 300 mg Heparin Sodium (Porcine) (Heparin Vial(*)) 5,000 units SUBCUT Q8HR [facility] Last Admin: 04/22/19 12:59 Dose: 5,000 units Insulin Human Lispro (Humalog*) 0 units SUBCUT ACHS [facility]; Protocol Last Admin: 04/22/19 11:50 Dose: 3 units Levothyroxine Sodium (Synthroid Tab*) 25 mcg PO QAM@0600 [facility] Last Admin: 04/22/19 04:55 Dose: 25 mcg Melatonin (Melatonin) 3 mg PO BEDTIME PRN PRN Reason: INSOMNIA Last Admin: 04/20/19 22:21 Dose: 3 mg Mometasone Furoate/Formoterol Fumar (Dulera 200/5 Mdi*) 2 puff INH BID PRN; Protocol PRN Reason: WHEEZING Nicotine Polacrilex (Nicotine Gum*) 4 mg PO Q2H PRN PRN Reason: CRAVING Nystatin (Nystatin Cream*) 1 applic TOPICAL TID [facility] Last Admin: 04/22/19 13:01 Dose: 1 applic Pantoprazole Sodium (Protonix Tab*) 40 mg PO DAILY [facility] Last Admin: 04/22/19 08:42 Dose: 40 mg Quetiapine Fumarate (Seroquel Tab*) 300 mg PO BEDTIME [facility] Last Admin: 04/21/19 21:08 Dose: 300 mg Vital Signs - 8 hr 04/22/19 04/22/19 04/22/19 08:00 08:24 08:39 Temperature Pulse Rate Respiratory 18 16 Rate Blood Pressure (mmHg) O2 Sat by Pulse 95 91 Oximetry 04/22/19 04/22/19 04/22/19 08:42 10:26 11:15 Temperature 97.6 F Pulse Rate 65 Respiratory 16 20 20 Rate Blood Pressure 126/64 (mmHg) O2 Sat by Pulse 94 Oximetry 04/22/19 04/22/19 04/22/19 12:00 12:58 14:48 Temperature Pulse Rate Respiratory 18 20 Rate Blood Pressure (mmHg) O2 Sat by Pulse 94 Oximetry 04/22/19 15:29 Temperature Pulse Rate Respiratory Rate Blood Pressure (mmHg) O2 Sat by Pulse 96 Oximetry Oxygen Devices in Use Now: Nasal Cannula Appearance: Awake, alert no distress Eyes: No Scleral Icterus, - - EOMI Ears/Nose/Mouth/Throat: NL Teeth, Lips, Gums, Mucous Membranes Moist Neck: NL Appearance and Movements; NL JVP, Trachea Midline Respiratory: Symmetrical Chest Expansion and Respiratory Effort, Clear to Auscultation Cardiovascular: - - + edema Neurological: Alert and Oriented x 3 Result Diagrams: 04/22/19 07:32 04/22/19 07:32 Assess/Plan/Problems-Billing Ms Sandoval is a 64 yo F who has a h/o NISSA who has not used her CPAP due to it being broken for about the last 1 year, COPD, RA, type II DM, HTN and hypothyroidism who presented to the ER with c/o progressive SOB over the last 2 months. - Patient Problems (1) COPD (chronic obstructive pulmonary disease) Current Visit: Yes Status: Acute Code(s): J44.9 - CHRONIC OBSTRUCTIVE PULMONARY DISEASE, UNSPECIFIED SNOMED Code(s): 10466541 Comment: - Continue supplemental O2. - Continue inhaled steroid, prn albuterol. (2) Diastolic CHF Current Visit: Yes Status: Acute Code(s): I50.30 - UNSPECIFIED DIASTOLIC ( CONGESTIVE) HEART FAILURE SNOMED Code(s): 591451577 Comment: - Acute diastollic - She clearly does have evidence of heart failure both clinically and radiographically. - s/p IV lasix 40 mg IV bid transitioned to PO lasix 40 mg am and 20 mg pm. - I am going to keep "nephrotoxic drug" on hold to allow s/p CTA to rule out PE (negative). Will resume aldactone. defer lisinopril to outpatient or PCP (3) HTN (hypertension) Current Visit: Yes Status: Acute Code(s): I10 - ESSENTIAL (PRIMARY) HYPERTENSION SNOMED Code(s): 69139926 Comment: - BP is under good control. Will resume spironolactone and defer lisinopril to outpatient with PCP (4) Hypothyroidism Current Visit: Yes Status: Acute Code(s): E03.9 - HYPOTHYROIDISM, UNSPECIFIED SNOMED Code(s): 68108827 Comment: TSH is in good range. Continue current dose of synthroid 25 mcg daily. (5) NISSA (obstructive sleep apnea) Current Visit: Yes Status: Acute Code(s): G47.33 - OBSTRUCTIVE SLEEP APNEA ( ADULT) (PEDIATRIC) SNOMED Code(s): 77045044 Comment: - Continue CPAP. Case management is working on getting a functional CPAP for home. - Patient is trying to tolerate even inpatient. She only wore it 15 minutes or so yesterday and today. No urgency for the machine, her has to take her own from home to her supplier to get supply and adjust her Pressure. patient has a machine that need to have it serviced. Even inpatient she is not able to tolerating it (6) Type II diabetes mellitus Current Visit: Yes Status: Acute Comment: - Sugars are under good control off her metformin. Continue lispro sliding scale. (7) DVT prophylaxis Current Visit: Yes Status: Acute Code(s): Z29.9 - ENCOUNTER FOR PROPHYLACTIC MEASURES, UNSPECIFIED SNOMED Code(s): 058246089 Comment: SQ heparin
[2019-04-22 15:46] VITALS: BP 133/48
--- NOTE | 2019-04-24 22:25 | DS ---
CC: Dr. Isaiah Moreno * DISCHARGE SUMMARY: DATE OF ADMISSION: 04/18/19 DATE OF DISCHARGE: 04/22/19 PRIMARY CARE PROVIDER: Dr. Moreno. FINAL DISCHARGE DIAGNOSES: 1. Acute diastolic heart failure. 2. Obstructive sleep apnea. 3. Diabetes mellitus. ADDITIONAL DISCHARGE DIAGNOSES: 1. Rheumatoid arthritis. 2. Chronic obstructive pulmonary disease. 3. Diabetes mellitus type 2. 4. Hypertension. 5. Hypothyroidism. HOSPITAL COURSE: The patient presented to [facility] on 04/18/19 for progressive shortness of breath over the past several months associated with left lower leg swelling. With known history of COPD; obstructive sleep apnea, noncompliant with her CPAP; diabetes mellitus. In emergency room, she states that she has been having difficulty breathing for over 2 months, but it got severely bad and progressively over the past few days, she had difficulty ambulating 100 feet and on day of admission, she could not even ambulate 5 to 6 feet without stopping and gasping for air. Also, she reported increased cough, green phlegm sputum. The patient was admitted to the medical service with admitting diagnosis of acute congestive heart failure and was diagnosed with a diastolic heart failure with a preserved LV function. She was started on intravenous Lasix, she received 80 mg in the emergency room and she was started on Lasix 40 mg IV b.i.d. and was ordered CPAP while she was inpatient. The patient was seen and evaluated by me on 04/20/19. At that time, she verbalized significant improvement in her symptomatology. She was maintained on IV Lasix for the following days and maintained daily. She continued to improve slowly and physical therapy was obtained and occupational therapy was requested, who deemed the patient is stable for discharge, does not require skilled therapy. I transitioned her to oral Lasix on the 04/21/19 and I placed her on Lasix 40 mg in the morning and 20 mg at night. On reviewing her clinical studies, which included CT of the chest which was negative for pulmonary embolism, incidental pulmonary nodule, cardiomegaly was observed and slow growth of her left adrenal nodule which was present since 2016. I did describe to the patient that she needs to comply with her CPAP at home and her is taking her machine to be serviced and get a new equipment and supply. Otherwise, that put her at a high risk of ongoing decompensated heart failure, which is going to lead to right-sided failure. We tried several medicines while she is in the hospital. She continued having difficulty keeping the machine on all night and she continues to take it after 10 to 15 minutes. Therefore, on the 04/22/19, I deemed the patient is stable from medical point of view to discharge home; however, she needs to comply and adhere to her regimen diuretic and her CPAP. DISCHARGE PHYSICAL EXAMINATION: Please refer to my physical and progress note done earlier today. DISCHARGE MEDICATIONS: 1. Lasix 40 mg in the morning, 20 mg in the afternoon. 2. Melatonin 3 mg at bedtime. 3. Nicotine gum for smoking cessation. 4. Aldactone 25 mg every day. Continued home medications: 1. Symbicort. 2. Hydrocodone. 3. Gabapentin 300 three times a day. 4. Metformin 500 twice a day. 5. Lipitor 20 daily. 6. Levothyroxine 25 mcg daily. 7. Omeprazole 20 daily. 8. Lexapro 20 daily. 9. Seroquel 300 mg at bedtime. 10. Albuterol inhaler. She was advised to discontinue her naproxen and the spironolactone with hydrochlorothiazide as the hydrochlorothiazide was substituted with Lasix and spironolactone was given separate prescription. INPATIENT DIAGNOSTIC STUDIES: CT of the chest, which was negative for PE. Chest x-ray shows pulmonary vascular congestions consistent with interstitial pulmonary edema. 2D echo revealed preserved LV function with ejection fraction of 55% to 60%. Trace mitral regurge. No evidence of aortic stenosis. Could not assess her pulmonary artery pressure. Ultrasound of the lower extremity was negative for DVT in the left lower extremity. DISCHARGE INSTRUCTION: 1. Follow up with primary care, Dr. Isaiah Moreno in 1 to 2 weeks. 2. Take all medications as prescribed. The patient to utilize her oxygen at 4 L via nasal cannula and that would be further titrated downward. 3. She was urged to comply with her CPAP and her is getting her CPAP supply from her home oxygen supplier. 4. To return to the emergency room immediately if she develop any shortness of breath, chest pain. DISCHARGE DISPOSITION: Home. DISCHARGE CONDITION: Stable. [id number]/CPS #: [id number] MTDD
== END 2019-04-22 16:45 | disposition home or self-care (01) | DRG 291 ==
LOC: ED 14:29 → MEDTELE 17:27
PROVIDERS: ADMIT Hospitalist; ATTEND Internal Medicine
PROC: 5A09357 Assistance with Respiratory Ventilation, Less than 24 Consecutive Hours, Continuous Positive Airway Pressure (ICD-10-PCS; principal; 2019-04-18)
DX: I11.0 Hypertensive heart disease with heart failure (principal); I50.31 Acute diastolic (congestive) heart failure; Z68.43 Body mass index [BMI] 50.0-59.9, adult; M06.9 Rheumatoid arthritis, unspecified; J44.9 Chronic obstructive pulmonary disease, unspecified; G47.33 Obstructive sleep apnea (adult) (pediatric); E11.9 Type 2 diabetes mellitus without complications; E03.9 Hypothyroidism, unspecified; E66.01 Morbid (severe) obesity due to excess calories; D47.2 Monoclonal gammopathy; F32.9 Major depressive disorder, single episode, unspecified; F41.9 Anxiety disorder, unspecified; E87.70 Fluid overload, unspecified; F17.210 Nicotine dependence, cigarettes, uncomplicated; Z79.84 Long term (current) use of oral hypoglycemic drugs; Z79.51 Long term (current) use of inhaled steroids; Z79.899 Other long term (current) drug therapy; Z88.1 Allergy status to other antibiotic agents; Z88.8 Allergy status to other drugs, medicaments and biological substances
CPT/HCPCS: 36415; 71045; 71275; 80048; 80053; 82803; 83036; 83735; 83880; 84100; 84443; 85025; 85060; 85379; 93306; 94660; 96374; 99284; A9270-GY; C8929; J1644; J1940; Q9967

== ENCOUNTER 2021-10-21 12:12 | Inpatient (IN) ==
[2021-10-21 13:31] LABS: ABS Basophils 0.1 10^3/ul (0-0.2); ABS Eosinophils 0.1 10^3/ul (0-0.6); ABS Lymphocytes 1.3 10^3/ul (1.0-4.8); ABS Monocytes 1.1 10^3/ul (0-0.8); ABS Neutrophils 10.8 10^3/ul (1.5-7.7); Eosinophil % 0.4 %; Hematocrit 31 % (35-47); Lymphocyte % 9.5 %; Mean Corpuscular HGB Conc 33 g/dL (31-36); Mean Corpuscular Hemoglobin 28 pg (27-31); Mean Corpuscular Volume 88 fL (80-97); Mean Platelet Volume 7.6 fL (7.4-10.4); Platelet Count 352 10^3/uL (150-450); Red Cell Distribution Width 16 % (10-15); White Blood Count 13.3 10^3/uL (3.5-10.8)
[2021-10-21 14:06] LABS: Albumin 3.6 g/dL (3.2-5.2); Anion Gap 9 mmol/L (2-11); CO2 Carbon Dioxide 29 mmol/L (22-32); Calcium 9.9 mg/dL (8.6-10.3); Chloride 97 mmol/L (101-111); Potassium 4.2 mmol/L (3.5-5.0); Sodium 135 mmol/L (135-145)
[2021-10-21 14:12] LABS: ALT 25 U/L (7-52); AST 20 U/L (13-39); Albumin/Globulin Ratio 1.1 (1-3); Alkaline Phosphatase 172 U/L (35-149); Blood Urea Nitrogen 15 mg/dL (6-24); Globulin 3.3 g/dL (2-4); Glucose 122 mg/dL (70-100); Lipase < 10 U/L (11.0-82.0); Total Protein 6.9 g/dL (6.4-8.9); eGFR CKD-EPI 53.8 (>60)
[2021-10-21 14:19] LABS: Urine Bacteria Absent (Absent); Urine Red Blood Cell 2+(6-10/hpf) (Absent); Urine Squamous Epithelial Cell Present (Absent); Urine Transitional Epithelial Present (Absent); Urine White Blood Cell 3+(>20/hpf) (Absent)
[2021-10-21 14:22] LABS: Urine Appearance Cloudy; Urine Bilirubin 1+ (Small) (Negative); Urine Blood 1+ (Small) (Negative); Urine Color Amber; Urine Glucose Negative (Negative); Urine Ketones Negative (Negative); Urine Protein 2+ (100 mg/dL) (Negative); Urine Urobilinogen 1.0 (Negative) (Negative); Urine pH 5.5 (5.0-9.0)
[2021-10-21 14:23] LABS: Urine Nitrite Positive (Negative)
[2021-10-21] MEDS ORDERED: Iodixanol (CONTRAST) 320 MG/ML 100 ML SDV IV ONE (14:25)
[2021-10-21] MEDS ORDERED: cefTRIAXone 1 gm/50 mL D5W 1 GM/50 ML BAG IV ONE ×2 (14:49→16:45)
[2021-10-21 15:19] LABS: Erythrocyte Sed Rate > 120 mm/Hr (0-29)
[2021-10-21] MEDS ORDERED: metroNIDAZOLE IV 500 MG/100ML 500 MG/100 ML BAG IVPB ONE (16:06)
[2021-10-21] MEDS ORDERED: cefTRIAXone 2 gm/50 mL D5W 2 GM/50 ML BAG IV ONE (16:10)
[2021-10-21] MEDS ORDERED: NS 0.9% 1000 ml BAG 1,000 ML IV ONE (16:11)
[2021-10-21] MEDS ORDERED: Albuterol HFA INHALER 8 gm MDI INH PRN (16:47)
[2021-10-21] MEDS ORDERED: Cefepime 2 GM in Dextrose 2 GM/50 ML BAG IV SCH (17:00)
[2021-10-21 17:17] LABS: Magnesium 2.1 mg/dL (1.9-2.7)
[2021-10-21] MEDS: SPIRIVA Respimat (tiotropium) 2.5 mcg/inh Inhaler INH SCH ×2 (18:16→19:39)
[2021-10-21] MEDS: Enoxaparin 40 MG/0.4 ML SYR SUBCUT SCH (18:39)
[2021-10-21] MEDS: Cefepime 2 GM in Dextrose 2 GM/50 ML BAG IV SCH (22:30)
[2021-10-21] MEDS: Budesonide/Formote 160/4.5(NF) MDI INH SCH (23:41)
[2021-10-22] MEDS: metroNIDAZOLE IV 500 MG/100ML 500 MG/100 ML BAG IVPB SCH ×3 (00:30→18:28)
[2021-10-22] MEDS: HYDROcodone/Acetamin 10/325 TAB (NF) PO PRN ×3 (05:44→19:42)
[2021-10-22 05:51] LABS: ABS Lymphocytes 0.8 10^3/ul (1.0-4.8); ABS Neutrophils 11.6 10^3/ul (1.5-7.7); Eosinophil % 0.2 %; Hematocrit 29 % (35-47); Hemoglobin 9.3 g/dL (12.0-16.0); Lymphocyte % 6.1 %; Mean Corpuscular HGB Conc 32 g/dL (31-36); Mean Corpuscular Hemoglobin 28 pg (27-31); Mean Corpuscular Volume 88 fL (80-97); Mean Platelet Volume 7.7 fL (7.4-10.4); Platelet Count 327 10^3/uL (150-450); Red Blood Count 3.34 10^6 /uL (3.70-4.87); Red Cell Distribution Width 16 % (10-15); White Blood Count 13.4 10^3/uL (3.5-10.8)
[2021-10-22] MEDS: Cefepime 2 GM in Dextrose 2 GM/50 ML BAG IV SCH ×3 (06:33→22:59)
[2021-10-22 06:53] LABS: ALT 27 U/L (7-52); Albumin 3.1 g/dL (3.2-5.2); Alkaline Phosphatase 183 U/L (35-149); Blood Urea Nitrogen 15 mg/dL (6-24); C Reactive Protein 239.91 mg/L (<8.01); CO2 Carbon Dioxide 28 mmol/L (22-32); Chloride 98 mmol/L (101-111); Globulin 3.2 g/dL (2-4); Glucose 119 mg/dL (70-100); Sodium 137 mmol/L (135-145); Total Protein 6.3 g/dL (6.4-8.9); eGFR CKD-EPI 66.9 (>60)
[2021-10-22 07:07] LABS: TSH Ultra Thyroid Stim Horm 2.24 mcIU/mL (0.34-5.60)
[2021-10-22 07:11] LABS: Anion Gap 11 mmol/L (2-11)
[2021-10-22] MEDS: SPIRIVA Respimat (tiotropium) 2.5 mcg/inh Inhaler INH SCH ×2 (09:10→09:20)
[2021-10-22] MEDS: Budesonide/Formote 160/4.5(NF) MDI INH SCH (09:20)
[2021-10-22] MEDS ORDERED: Ondansetron 4 mg VIAL 2 MG/ML 2 ml VIAL ONE (10:38)
[2021-10-22] MEDS: Ondansetron 4 mg VIAL 2 MG/ML 2 ml VIAL IV PRN ×2 (10:40→19:51)
[2021-10-22 11:56] LABS: Potassium Redraw 3.7 mmol/L (3.5-5.0)
[2021-10-22] MEDS: Enoxaparin 40 MG/0.4 ML SYR SUBCUT SCH (17:17)
[2021-10-22] MEDS: Mometasone/Formoter 200/5 MDI INH SCH (20:16)
[2021-10-23] MEDS: metroNIDAZOLE IV 500 MG/100ML 500 MG/100 ML BAG IVPB SCH ×3 (01:50→17:28)
[2021-10-23 06:08] LABS: ABS Eosinophils 0.1 10^3/ul (0-0.6); ABS Lymphocytes 1.2 10^3/ul (1.0-4.8); ABS Monocytes 0.8 10^3/ul (0-0.8); ABS Neutrophils 13.9 10^3/ul (1.5-7.7); Eosinophil % 0.6 %; Hematocrit 30 % (35-47); Hemoglobin 9.3 g/dL (12.0-16.0); Lymphocyte % 7.8 %; Mean Corpuscular HGB Conc 32 g/dL (31-36); Mean Corpuscular Hemoglobin 28 pg (27-31); Mean Corpuscular Volume 87 fL (80-97); Mean Platelet Volume 7.6 fL (7.4-10.4); Platelet Count 383 10^3/uL (150-450); Red Blood Count 3.37 10^6 /uL (3.70-4.87); Red Cell Distribution Width 16 % (10-15); White Blood Count 16.1 10^3/uL (3.5-10.8)
[2021-10-23] MEDS: HYDROcodone/Acetamin 10/325 TAB (NF) PO PRN ×4 (06:14→21:06)
[2021-10-23 07:08] LABS: Calcium 9.3 mg/dL (8.6-10.3); Magnesium 1.7 mg/dL (1.9-2.7); Potassium 3.4 mmol/L (3.5-5.0); eGFR CKD-EPI 48.6 (>60)
[2021-10-23] MEDS ORDERED: Magnesium Sulfate IV 3 GM in NS 0.9% 100 ml BAG 100 ML IVPB ONE (07:10)
[2021-10-23] MEDS: SPIRIVA Respimat (tiotropium) 2.5 mcg/inh Inhaler INH SCH (07:59)
[2021-10-23] MEDS: Mometasone/Formoter 200/5 MDI INH SCH ×2 (07:59→19:39)
[2021-10-23] MEDS: Ondansetron 4 mg VIAL 2 MG/ML 2 ml VIAL IV PRN ×2 (09:09→15:02)
[2021-10-23] MEDS: Cefepime 2 GM in Dextrose 2 GM/50 ML BAG IV SCH ×2 (10:35→16:04)
[2021-10-23] MEDS: KCL 20 MEQ/100 ML IVPREMIX 20 MEQ/100 ML BAG IV SCH ×2 (12:16→14:14)
[2021-10-23] MEDS ORDERED: Potassium Chlor 20 meq TAB.ER PO ONE (13:36)
[2021-10-23] MEDS: Enoxaparin 40 MG/0.4 ML SYR SUBCUT SCH (17:25)
[2021-10-24] MEDS: Cefepime 2 GM in Dextrose 2 GM/50 ML BAG IV SCH ×3 (01:01→15:45)
[2021-10-24] MEDS: metroNIDAZOLE IV 500 MG/100ML 500 MG/100 ML BAG IVPB SCH ×3 (01:43→16:51)
[2021-10-24] MEDS: HYDROcodone/Acetamin 10/325 TAB (NF) PO PRN ×4 (03:54→20:15)
[2021-10-24 05:42] LABS: ABS Eosinophils 0.3 10^3/ul (0-0.6); ABS Lymphocytes 1.1 10^3/ul (1.0-4.8); ABS Monocytes 1.1 10^3/ul (0-0.8); ABS Neutrophils 9.7 10^3/ul (1.5-7.7); Eosinophil % 2.2 %; Hematocrit 30 % (35-47); Hemoglobin 9.4 g/dL (12.0-16.0); Lymphocyte % 8.7 %; Mean Corpuscular HGB Conc 32 g/dL (31-36); Mean Corpuscular Hemoglobin 28 pg (27-31); Mean Corpuscular Volume 87 fL (80-97); Mean Platelet Volume 7.3 fL (7.4-10.4); Platelet Count 369 10^3/uL (150-450); Red Blood Count 3.41 10^6 /uL (3.70-4.87); Red Cell Distribution Width 16 % (10-15); White Blood Count 12.1 10^3/uL (3.5-10.8)
[2021-10-24 06:53] LABS: Calcium 9.4 mg/dL (8.6-10.3); Magnesium 2.2 mg/dL (1.9-2.7); Potassium 4.1 mmol/L (3.5-5.0); eGFR CKD-EPI 51.6 (>60)
[2021-10-24] MEDS: Mometasone/Formoter 200/5 MDI INH SCH ×2 (07:33→19:19)
[2021-10-24] MEDS: SPIRIVA Respimat (tiotropium) 2.5 mcg/inh Inhaler INH SCH (07:34)
[2021-10-24] MEDS: Ondansetron 4 mg VIAL 2 MG/ML 2 ml VIAL IV PRN ×2 (08:33→15:44)
[2021-10-24] MEDS: Acetaminophen IV 1 GM/100ML 1,000 MG/100 ML BAG IV PRN (11:44)
[2021-10-24] MEDS ORDERED: Iodixanol (CONTRAST) 320 MG/ML 100 ML SDV IV ONE (13:29)
[2021-10-24] MEDS: Enoxaparin 40 MG/0.4 ML SYR SUBCUT SCH (18:01)
[2021-10-25] MEDS: Cefepime 2 GM in Dextrose 2 GM/50 ML BAG IV SCH ×2 (00:24→07:27)
[2021-10-25] MEDS: metroNIDAZOLE IV 500 MG/100ML 500 MG/100 ML BAG IVPB SCH ×2 (01:37→08:58)
[2021-10-25] MEDS: Ondansetron 4 mg VIAL 2 MG/ML 2 ml VIAL IV PRN ×2 (03:37→10:18)
[2021-10-25] MEDS: HYDROcodone/Acetamin 10/325 TAB (NF) PO PRN ×2 (05:49→21:18)
[2021-10-25 05:55] LABS: ABS Eosinophils 0.2 10^3/ul (0-0.6); ABS Lymphocytes 0.8 10^3/ul (1.0-4.8); ABS Neutrophils 12.4 10^3/ul (1.5-7.7); Eosinophil % 1.2 %; Hematocrit 32 % (35-47); Lymphocyte % 5.3 %; Mean Corpuscular HGB Conc 32 g/dL (31-36); Mean Corpuscular Hemoglobin 27 pg (27-31); Mean Corpuscular Volume 86 fL (80-97); Mean Platelet Volume 7.6 fL (7.4-10.4); Platelet Count 418 10^3/uL (150-450); Red Blood Count 3.66 10^6 /uL (3.70-4.87); Red Cell Distribution Width 16 % (10-15); White Blood Count 14.3 10^3/uL (3.5-10.8)
[2021-10-25 06:16] LABS: Calcium 9.4 mg/dL (8.6-10.3); Magnesium 1.9 mg/dL (1.9-2.7); Phosphorus 2.8 mg/dL (2.5-5.0); Potassium 3.4 mmol/L (3.5-5.0); eGFR CKD-EPI 63.7 (>60)
[2021-10-25] MEDS: Mometasone/Formoter 200/5 MDI INH SCH ×2 (06:56→06:59)
[2021-10-25] MEDS: SPIRIVA Respimat (tiotropium) 2.5 mcg/inh Inhaler INH SCH ×2 (06:56→07:00)
[2021-10-25] MEDS: Acetaminophen IV 1 GM/100ML 1,000 MG/100 ML BAG IV PRN (07:24)
[2021-10-25] MEDS ORDERED: Piperacillin/Tazobac ADVAN 3.375 GM in NS 0.9% 100 ml BAG 100 ML IV ONE (09:35)
[2021-10-25] MEDS ORDERED: Zosyn per Pharmacy NOTE FOLLOW UP SCH (10:00)
[2021-10-25] MEDS: HYDROmorphone 1 MG/1 ML SYRINGE IV SLOW PU PRN ×3 (11:24→17:10)
[2021-10-25] MEDS: Senna TAB 8.6 mg TAB PO SCH ×2 (11:56→21:18)
[2021-10-25] MEDS: ZOSYN 3.375 GM Q8H per EXTENDED INFUSION IV SCH ×2 (14:19→21:19)
[2021-10-25] MEDS: Enoxaparin 40 MG/0.4 ML SYR SUBCUT SCH (17:09)
[2021-10-26] MEDS: Mometasone/Formoter 200/5 MDI INH SCH ×3 (01:57→20:19)
[2021-10-26] MEDS: Ondansetron 4 mg VIAL 2 MG/ML 2 ml VIAL IV PRN ×3 (02:22→21:36)
[2021-10-26] MEDS: HYDROmorphone 1 MG/1 ML SYRINGE IV SLOW PU PRN ×5 (02:22→21:32)
[2021-10-26] MEDS: ZOSYN 3.375 GM Q8H per EXTENDED INFUSION IV SCH ×3 (05:16→22:30)
[2021-10-26] MEDS: HYDROcodone/Acetamin 10/325 TAB (NF) PO PRN ×4 (05:21→19:45)
[2021-10-26 05:47] LABS: ABS Eosinophils 0.2 10^3/ul (0-0.6); ABS Lymphocytes 1.2 10^3/ul (1.0-4.8); ABS Monocytes 1.1 10^3/ul (0-0.8); ABS Neutrophils 11.5 10^3/ul (1.5-7.7); Eosinophil % 1.3 %; Hematocrit 31 % (35-47); Lymphocyte % 8.4 %; Mean Corpuscular HGB Conc 32 g/dL (31-36); Mean Corpuscular Hemoglobin 28 pg (27-31); Mean Corpuscular Volume 86 fL (80-97); Mean Platelet Volume 6.9 fL (7.4-10.4); Platelet Count 410 10^3/uL (150-450); Red Cell Distribution Width 16 % (10-15)
[2021-10-26 06:23] LABS: Calcium 9.5 mg/dL (8.6-10.3); Magnesium 1.9 mg/dL (1.9-2.7); Potassium 3.1 mmol/L (3.5-5.0); eGFR CKD-EPI 58.7 (>60)
[2021-10-26] MEDS: SPIRIVA Respimat (tiotropium) 2.5 mcg/inh Inhaler INH SCH (07:21)
[2021-10-26] MEDS: Acetaminophen IV 1 GM/100ML 1,000 MG/100 ML BAG IV PRN ×2 (09:08→17:39)
[2021-10-26] MEDS: Senna TAB 8.6 mg TAB PO SCH ×3 (09:13→21:26)
[2021-10-26] MEDS: KCL 20 MEQ/100 ML IVPREMIX 20 MEQ/100 ML BAG IV SCH ×2 (09:47→12:42)
[2021-10-26] MEDS: Enoxaparin 40 MG/0.4 ML SYR SUBCUT SCH (17:39)
[2021-10-27] MEDS: HYDROmorphone 1 MG/1 ML SYRINGE IV SLOW PU PRN ×4 (02:34→15:05)
[2021-10-27 05:20] LABS: ABS Basophils 0.1 10^3/ul (0-0.2); ABS Eosinophils 0.3 10^3/ul (0-0.6); ABS Lymphocytes 1.4 10^3/ul (1.0-4.8); ABS Monocytes 1.1 10^3/ul (0-0.8); Eosinophil % 2.3 %; Hematocrit 30 % (35-47); Hemoglobin 9.9 g/dL (12.0-16.0); Lymphocyte % 9.2 %; Mean Corpuscular HGB Conc 33 g/dL (31-36); Mean Corpuscular Hemoglobin 28 pg (27-31); Mean Corpuscular Volume 87 fL (80-97); Mean Platelet Volume 7.3 fL (7.4-10.4); Platelet Count 452 10^3/uL (150-450); Red Blood Count 3.48 10^6 /uL (3.70-4.87); Red Cell Distribution Width 16 % (10-15); White Blood Count 14.9 10^3/uL (3.5-10.8)
[2021-10-27 05:46] LABS: Calcium 9.3 mg/dL (8.6-10.3); Magnesium 1.9 mg/dL (1.9-2.7); Potassium 3.4 mmol/L (3.5-5.0); eGFR CKD-EPI 60.7 (>60)
[2021-10-27] MEDS: ZOSYN 3.375 GM Q8H per EXTENDED INFUSION IV SCH ×2 (05:58→13:10)
[2021-10-27] MEDS: Mometasone/Formoter 200/5 MDI INH SCH ×2 (07:58→20:02)
[2021-10-27] MEDS: SPIRIVA Respimat (tiotropium) 2.5 mcg/inh Inhaler INH SCH (07:58)
[2021-10-27] MEDS: Senna TAB 8.6 mg TAB PO SCH (08:50)
[2021-10-27] MEDS: HYDROcodone/Acetamin 10/325 TAB (NF) PO PRN ×2 (08:52→13:13)
[2021-10-27] MEDS ORDERED: Magnesium Sulfate 2 gm BAG 2 GM/50 ML BAG IVPB ONE (10:59)
[2021-10-27] MEDS ORDERED: Potassium Chlor 20 meq TAB.ER PO ONE (11:00)
[2021-10-27] MEDS ORDERED: Iodixanol (CONTRAST) 320 MG/ML 100 ML SDV IV ONE (11:58)
[2021-10-27] MEDS ORDERED: Acetaminophen IV 1 GM/100ML 1,000 MG/100 ML BAG IV SCH (12:00)
[2021-10-27 13:17] LABS: Rapid COVID-19 Molecular Undetected (Undetected)
[2021-10-27 16:00] VITALS: BP 113/66
== END 2021-10-27 16:45 | disposition short-term general hospital (02) | DRG 391 ==
LOC: ED 12:12 → EDHOLD 16:43 → SUATTDRO 16:43 → EDHOLD 10-22 13:11 → SSU 10-22 13:24
PROVIDERS: ADMIT Internal Medicine; ATTEND Internal Medicine